=== PATIENT | female | born 1935 | race Caucasian/White ===

== ENCOUNTER 2023-11-18 16:03 | Inpatient (IN) ==
--- NOTE | 2023-11-18 16:52 | Emergency Department Note ---
Impression & Plan RSV (respiratory syncytial virus infection), Bronchiectasis, Hypoxia ED Provider Note Provider: Vicente Bansal MD DATE OF SERVICE: 11/18/2023 CHIEF COMPLAINT: Cough, referred for [facility] HISTORY OF PRESENT ILLNESS: Patient is a 88-year-old female referred for [facility] with a history of bronchiectasis presenting here today with reports for some cough for the past week. Some intermittent fever fatigue and decreased appetite but denies chest pain or shortness of breath. Maybe a bit winded with exertion. No swelling. No travel. No sick contacts to her knowledge. 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 Some green phlegm production. Did not have an x-ray at urgent care and sent here as they were unable. Had a negative COVID test on Saturday by her report. Some decreased appetite. Not really nauseous. Unable to tell me if she has had a change in taste or smell. But expressed reports with ambulation she dropped about 90% SpO2. PAST MEDICAL HISTORY: As noted above MEDICATIONS: Reviewed medication list. SOCIAL HISTORY: Non-smoker PHYSICAL EXAM: GENERAL: alert and oriented in no acute distress on stretcher Head: normocephalic and atraumatic EYES: No injection, discharge or icterus. NECK: Trachea midline. Supple. ENT: Mucous membranes pink and moist. LUNGS: Airway patent. No retractions. Breath sounds clear without significant crackles noted. HEART: Regular rate and rhythm. No chest wall tenderness ABDOMEN: Soft and non-tender, without guarding or rebound. SKIN: Acyanotic, warm, dry, without rashes EXTREMITIES: Without swelling, tenderness or deformity NEUROLOGICAL: No focal deficits. No aphasia. No facial droop or slurred speech. EK beats minute normal sinus rhythm with left axis. No PVC or PAC. No acute ST segment elevation or depression with a QTc of 434. CONTINUOUS CARDIAC MONITORING: was ordered and showed a heart rate of 90s bpm in normal sinus rhythm Patient's laboratory studies and imaging reviewed. Differential includes Reactive airway disease, pneumonia, pneumothorax, COPD, CHF, infections, cardiac ischemia, pulmonary embolism, musculoskeletal, gastrointestinal, as well as other pathologies. IMPRESSION/MEDICAL DECISION MAKING: Patient with underlying bronchiectasis now somewhat productive cough with green sputum. Borderline O2 sats here. No fevers reported. No sick contacts. Respiratory viral panel be completed. Well-appearing but somewhat fatigued. EKG and troponin complete but doubt this represents ACS. I sensitive troponin only 15.2 and not indicative of this. Function slightly worse than normal at 1.2 today from baseline around 0.7. No second electrolyte abnormalities. No leukocytosis or anemia on blood work. Initially sent for a 2 view chest x-ray to evaluate for signs of pneumonia. No evidence of fluid overload on clinical exam or swelling of the legs concerning for DVT. Lower suspicion for PE. Does resting at baseline desaturating to the high 80s. Not significantly wheezing. Non-smoker. 2 view chest x-ray without evidence of focal consolidation but some lung scarring noted. Doubt this represents PE given the infectious symptoms. Reviewed prior pulmonary note from December 2022 as well as prior sputum microbiology showing Pseudomonas. 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 Cannot totally exclude underlying bacterial component however. Again with her mild hypoxemia, advanced age, underlying lung disease, will recommend that we monitor her over here overnight. Hospitalist team contacted. Did discuss with the pulmonary team Dr. Franks recommended pseudomonal coverage for antibiotics. Updated patient and family who are in agreement. Sputum culture ordered. DIAGNOSIS: RSV, hypoxia, bronchiectasis DISPOSITION: Hospitalist will evaluate Patient was agreeable with this plan. 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 Hypothyroid HTN (hypertension) Surgical History (Updated 05/23/22 @ 07:59 by Swathi Odell RN) History of tooth extraction History of tonsillectomy History of colonoscopy History of esophagogastroduodenoscopy (EGD) History of cholecystectomy H/O: hysterectomy History of lumbar surgery L2-4 decompression Family History (Updated 05/23/22 @ 08:00 by Swathi Odell RN) Grandmother (Maternal) Diabetes Social History Smoking Status: Never smoker Second Hand Exposure: No; Do You Dip or Chew Tobacco: No; Hx Alcohol Use: Yes Alcohol type: wine Hx Substance Use: No Preferred Language: Guinean Communication Ability: Effective Hearing Ability: Use of Hearing Aid 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 Beliefs That Will Affect Care: None marital status: Current Living Situation: Alone Current Living Situation Comment: " [place]" Feels Safe at Home: Yes Assistive Devices: Glasses, Hearing Aid - Bilateral and Walker Allergies Allergies Allergy/AdvReac Type Severity Reaction Status Date / Time No Known Allergies Allergy Verified 11/18/23 16:37 Home Meds Home Medications Medication Instructions Recorded Confirmed amlodipine 5 mg tablet 5 mg PO PM 10/13/21 11/18/23 diphenhydramine 25 1 tab PO HS PRN Sleep 10/13/21 11/18/23 mg-acetaminophen 500 mg tablet (Tylenol PM Extra Strength) duloxetine 60 mg capsule,delayed 60 mg PO QAM 10/13/21 11/18/23 release (Cymbalta) gabapentin 600 mg tablet 1,200 mg PO BID 10/13/21 11/18/23 polyethylene glycol 3350 17 17 g PO QAM 10/13/21 11/18/23 gram/dose oral powder (Miralax) cyclosporine 0.05 % eye drops in a 1 drp OPB BID 11/18/23 11/18/23 dropperette estradiol 0.5 mg tablet 0.5 mg PO DAILY 11/18/23 11/18/23 levothyroxine 25 mcg tablet 25 mcg PO DAILYBB 11/18/23 11/18/23 pantoprazole 40 mg tablet,delayed 40 mg PO DAILY 11/18/23 11/18/23 release Results & Data (ED) Vital Signs Vital Signs - 24 hr 11/18/23 16:14 11/18/23 17:21 11/18/23 17:27 Temperature 36.8 C Temperature Source Temporal Artery Scan Pulse Rate 96 H 91 H Pulse Rate [Apical] Respiratory Rate 19 18 Respiratory Effort / Characteristics Respiratory Depth Blood Pressure 88/58 L Blood Pressure [Left Arm] Blood Pressure Mean 68 Blood Pressure Mean [Left Arm] Blood Pressure Position [Left Arm] Pulse Oximetry 99 91 88 L Oxygen Delivery Method Room Air Room Air Room Air Oxygen Flow Rate Sepsis Recent Fever Within 48 Hours Yes Sepsis New/Unexplained Change in Mental Status N/A Sepsis Action Taken by Nursing No Action Required 11/18/23 17:28 11/18/23 18:19 11/18/23 19:23 Temperature Temperature Source Pulse Rate Pulse Rate [Apical] 89 90 Respiratory Rate 19 21 Respiratory Effort / Characteristics Non-Labored Spontaneous Respiratory Depth Normal Blood Pressure Blood Pressure [Left Arm] 120/79 131/88 Blood Pressure Mean Blood Pressure Mean [Left Arm] 92 102 Blood Pressure Position [Left Arm] Semi-fowlers Pulse Oximetry 93 98 94 Oxygen Delivery Method Nasal Cannula Nasal Cannula Nasal Cannula Oxygen Flow Rate 2 2 2 Sepsis Recent Fever Within 48 Hours Sepsis New/Unexplained Change in Mental Status Sepsis Action Taken by Nursing 11/18/23 21:00 Temperature Temperature Source Pulse Rate Pulse Rate [Apical] 91 H Respiratory Rate 18 Respiratory Effort / Characteristics Respiratory Depth Normal Blood Pressure Blood Pressure [Left Arm] 122/74 Blood Pressure Mean Blood Pressure Mean [Left Arm] 90 Blood Pressure Position [Left Arm] Pulse Oximetry 94 Oxygen Delivery Method Nasal Cannula Oxygen Flow Rate 2 Sepsis Recent Fever Within 48 Hours Sepsis New/Unexplained Change in Mental Status Sepsis Action Taken by Nursing Laboratory Data 11/18/23 16:39 11/18/23 16:39 Lab Results 11/18/23 11/18/23 11/18/23 Range/Units 16:39 17:16 20:46 WBC 7.38 (4.8-10.8) K/ul RBC 4.69 (4.20-5.40) M/uL Hgb 14.6 (12.0-16.0) g/dl Hct 44.3 (37.0-47.0) % MCV 94.5 (80.0-100.0) fL MCH 31.1 (25.0-34.0) pg MCHC 33.0 (32.0-36.0) g/dL RDW Std Deviation 47.5 H (36.4-46.3) fL RDW Coeff of Tanya 13.7 (11.5-14.5) % Plt Count 159 (130-400) K/uL MPV 12.2 (9.4-12.4) fL Immature Gran % (Auto) 0.5 % Neut % (Auto) 62.0 % Lymph % (Auto) 21.1 % [place] % (Auto) 16.0 % Eos % (Auto) 0.3 % Baso % (Auto) 0.1 % Neut # (Auto) 4.57 (1.40-6.50) K/uL Lymph # (Auto) 1.56 (1.20-3.40) K/uL [place] # (Auto) 1.18 H (0.11-0.59) K/uL Eos # (Auto) 0.02 (0.00-0.50) K/uL Baso # (Auto) 0.01 (0.00-0.20) K/uL Immature Gran # (Auto) 0.04 (0.01-0.20) K/uL PT 11.4 (9.0-12.0) Seconds INR 1.0 (0.9-1.1) Sodium 137 (136-145) mmol/L Potassium 3.6 (3.5-5.1) mmol/L Chloride 99 (98-107) mmol/L Carbon Dioxide 28 (21-32) mmol/L Anion Gap 10 (3-11) BUN 17 (6-23) mg/dl Creatinine 1.24 H (0.6-1.2) mg/dl Est Cr Clr Drug Dosing 24.6 ml/min Est GFR ( Amer) 45.5 ml/min Est GFR (Non-Af Amer) 39.3 ml/min BUN/Creatinine Ratio 13.7 (10-20) Glucose 124 H (70-99(Fasting)) mg/dl Calcium 9.3 (8.6-10.3) mg/dl Magnesium 2.1 (1.7-2.4) mg/dl Total Bilirubin 0.7 (0.2-1.0) mg/dl AST 18 (13-39) U/L ALT 10 (7-52) U/L Alkaline Phosphatase 62 (34-104) U/L Troponin I High Sens 15.2 H (0-14) pg/ml Total Protein 7.4 (6.0-8.3) gm/dl Albumin 3.9 (3.4-5.0) gm/dl Globulin 3.5 (2.5-4.0) gm/dl Albumin/Globulin Ratio 1.1 (0.9-2) Procalcitonin 0.18 (0-0.5) ng/ml Urine Color Yellow Urine Appearance Clear (Clear) Urine pH 5.5 (4.5-7.5) Ur Specific [place] 1.021 (1.000-1.030) Urine Protein 1+ H (Negative) Urine Glucose (UA) Negative (Negative) Urine Ketones Trace H (Negative) Urine Blood Negative (Negative) Urine Nitrite Negative (Negative) Urine Bilirubin Negative (Negative) Urine Urobilinogen Negative (Negative) Ur Leukocyte Esterase Negative (Negative) Urine WBC (Auto) 1-5 (0-5) /hpf Urine RBC (Auto) 0-4 (0-4) /hpf U Hyaline Cast (Auto) 1-5 (0-5) /lpf U Epithel Cells (Auto) >30 H (0-5) /lpf Urine Bacteria (Auto) Negative (Negative) Adenovirus (PCR) Not Detected (NotDetected) B. pertussis DNA (PCR) Not Detected (NotDetected) B.parapertussis DNA PCR Not Detected (NotDetected) C. pneumoniae DNA (PCR) Not Detected (NotDetected) Coronavirus OC43 (PCR) Not Detected (NotDetected) Coronavirus HKU1 (PCR) Not Detected (NotDetected) Coronavirus 229E (PCR) Not Detected (NotDetected) SARS-CoV-2 (PCR) Not Detected (NotDetected) Coronavirus NL63 (PCR) Not Detected (NotDetected) Human Metapneumovir PCR Not Detected (NotDetected) Influenza Type A (PCR) Not Detected (NotDetected) Influenza Type B (PCR) Not Detected (NotDetected) M. pneumoniae (PCR) Not Detected (NotDetected) Parainfluenza 1 (PCR) Not Detected (NotDetected) Parainfluenza 2 (PCR) Not Detected (NotDetected) Parainfluenza 3 (PCR) Not Detected (NotDetected) Parainfluenza 4 (PCR) Not Detected (NotDetected) RSV (PCR) DETECTED A* (NotDetected) Entero/Rhino (PCR) Not Detected (NotDetected) Administered Medications Guaifenesin (Guaifenesin 600 Mg Tabcr) 600 mg PO Q12 [facility] Stop: 12/18/23 20:59 Last Admin: 11/18/23 20:36 Dose: 600 mg Documented By: TI Lactated Ringer's (Lr) 1,000 mls @ 100 mls/hr IV .Q10H VASILE Stop: 11/20/23 02:29 Last Admin: 11/18/23 20:43 Dose: 100 mls/hr Documented By: TI Discontinued Medications Sodium Chloride (Nss) 500 mls @ 999 mls/hr IV .Q31M ONE Stop: 11/18/23 19:28 Last Infusion: 11/18/23 19:49 Dose: Infused Documented By: Admin: 11/18/23 19:21 Dose: 999 mls/hr Documented By: TI Cefepime HCl (Maxipime) 2,000 mg in 20 mls @ 5 mls/min IV NOW STA; Protocol Stop: 11/18/23 19:01 Last Admin: 11/18/23 19:18 Dose: 5 mls/min Documented By: TI Imaging Data Radiologist's Impression: Chest X-Ray 11/18/23 17:07 XR chest 2V PA/lateral HISTORY: Dyspnea/cough COMPARISON: Chest 03/12/2022. Chest CT 11/19/2022. FINDINGS: No pneumothorax. No pleural effusions. Bronchiectasis with scattered tree-in-bud nodular opacities and mild interstitial thickening persists. Chronic consolidation within the right middle lobe remains unchanged. There are calcified mediastinal and hilar lymph nodes. No new focal lung consolidations identified. No evidence for overt edema. The heart is normal in size. IMPRESSION: Chronic changes as described above. This is similar to the prior studies. ACT 112: Negative or not required by law. Electronically signed by: Gui House M.D. 11/18/2023 7:18 PM Discharge Plan Visit Data Chief Complaint: Cough Stated Complaint: COUGH/COUGHING UP GREEN FLEM, NO APPETITE, FEVER ED Provider: Vicente Bansal Discharge Problem: RSV (respiratory syncytial virus infection), Bronchiectasis, Hypoxia Patient Disposition: Being Evaluated by Hospitalist Forms Stand Alone Forms: My [facility] Prescriptions Prescriptions: No Action diphenhydramine-acetaminophen [Tylenol PM Extra Strength] 25-500 mg tablet 1 tab PO HS PRN (Reason: Sleep) amlodipine 5 mg tablet 5 mg PO PM polyethylene glycol 3350 [Miralax] 17 gram/dose powder 17 g PO QAM duloxetine [Cymbalta] 60 mg capsule,delayed release(DR/EC) 60 mg PO QAM gabapentin 600 mg tablet 1,200 mg PO BID pantoprazole 40 mg tablet,delayed release (DR/EC) 40 mg PO DAILY estradiol 0.5 mg tablet 0.5 mg PO DAILY cyclosporine 0.05 % dropperette 1 drp OPB BID levothyroxine 25 mcg tablet 25 mcg PO DAILYBB [facility] - Discharge Problem: Bronchiectasis Qualifiers: Bronchiectasis type: with acute exacerbation Qualified Code(s): J47.1 - Bronchiectasis with (acute) exacerbation
[2023-11-18 17:37] LABS: Basophils # (auto) 0.01 K/uL (0.00-0.20); Basophils % (auto) 0.1 %; Eosinophils # (auto) 0.02 K/uL (0.00-0.50); Eosinophils % (auto) 0.3 %; Hematocrit (blood only) 44.3 % (37.0-47.0); Hemoglobin 14.6 g/dl (12.0-16.0); Immature Granulocytes # (auto) 0.04 K/uL (0.01-0.20); Immature Granulocytes % (auto) 0.5 %; Lymphocytes # (auto) 1.56 K/uL (1.20-3.40); Lymphocytes % (auto) 21.1 %; Mean Corpuscular Hemoglobin 31.1 pg (25.0-34.0); Mean Corpuscular Volume 94.5 fL (80.0-100.0); Mean Platelet Volume 12.2 fL (9.4-12.4); Monocytes # (auto) 1.18 K/uL (0.11-0.59); Neutrophils # (auto) 4.57 K/uL (1.40-6.50); Platelet Count 159 K/uL (130-400); RDW Coefficient of Variation 13.7 % (11.5-14.5); RDW Standard Deviation 47.5 fL (36.4-46.3); Red Blood Count 4.69 M/uL (4.20-5.40); White Blood Count 7.38 K/ul (4.8-10.8)
[2023-11-18 17:51] LABS: Albumin Globulin Ratio 1.1 (0.9-2); Albumin Level 3.9 gm/dl (3.4-5.0); BUN Creatinine Ratio 13.7 (10-20); Bilirubin,Total 0.7 mg/dl (0.2-1.0); Calcium 9.3 mg/dl (8.6-10.3); Creatinine Clr Calc Pharmacy 24.6 ml/min; Est GFR (African American) 45.5 ml/min; Est GFR (Non-African American) 39.3 ml/min; Globulin 3.5 gm/dl (2.5-4.0); Potassium 3.6 mmol/L (3.5-5.1); Total Protein 7.4 gm/dl (6.0-8.3)
[2023-11-18 17:57] LABS: Troponin I High Sensitivity 15.2 pg/ml (0-14)
[2023-11-18 18:19] LABS: Adenovirus PCR Not Detected (NotDetected); Bordetella parapertussis PCR Not Detected (NotDetected); Bordetella pertussis PCR Not Detected (NotDetected); Chlamydia pneumoniae PCR Not Detected (NotDetected); Coronavirus 229E PCR Not Detected (NotDetected); Coronavirus CoV-2 (COVID19)PCR Not Detected (NotDetected); Coronavirus HKU1 PCR Not Detected (NotDetected); Coronavirus NL63 PCR Not Detected (NotDetected); Coronavirus OC43PCR Not Detected (NotDetected); Human Metapneumovirus PCR Not Detected (NotDetected); Influenza A PCR Not Detected (NotDetected); Influenza B PCR Not Detected (NotDetected); Mycoplasma pneumoniae PCR Not Detected (NotDetected); Parainfluenza Virus 1 PCR Not Detected (NotDetected); Parainfluenza Virus 2 PCR Not Detected (NotDetected); Parainfluenza Virus 3 PCR Not Detected (NotDetected); Parainfluenza Virus 4 PCR Not Detected (NotDetected); Rhinovirus/Enterovirus PCR Not Detected (NotDetected)
[2023-11-18 18:32] LABS: Prothrombin Time 11.4 Seconds (9.0-12.0)
[2023-11-18 18:52] LABS: Respiratory Syncytial VirusPCR DETECTED (NotDetected)
[2023-11-18] MEDS ORDERED: SODIUM CHLORIDE 0.9% 500 ML IV ONE (18:58)
[2023-11-18] MEDS ORDERED: CEFEPIME 2,000 MG/20 ML VIAL IV STA (18:58)
--- NOTE | 2023-11-18 19:19 | XRay Report ---
XR chest 2V PA/lateral HISTORY: Dyspnea/cough COMPARISON: Chest 03/12/2022. Chest CT 11/19/2022. FINDINGS: No pneumothorax. No pleural effusions. Bronchiectasis with scattered tree-in-bud nodular op acities and mild interstitial thickening persists. Chronic consolidation within the right middle lobe remains unchanged. There are calcified mediastinal and hilar lymph nodes. No new focal lung consolid ations identified. No evidence for overt edema. The heart is normal in size. IMPRESSION: Chronic changes as described above. This is similar to the prior studies. ACT 112: Negative or not required by law. Electronically signed by: Gui House M.D. 11/18/2023 7:18 PM
--- NOTE | 2023-11-18 19:37 | History & Physical Report ---
Date of Service November 18, 2023 Assessment & Plan (1) RSV (respiratory syncytial virus infection): Plan: Worsening cough, intermittent fever, fatigue, and decreased appetite x 1 week RSV + on presentation No leukocytosis; afebrile CXR showed chronic consolidation within the right middle lobe that remains unchanged; no new focal lung consolidations Droplet precautions in place Sputum culture ordered, pending Hx of valley fever (coccidioidal infection); patient follows with Dr. Davis (pulmonology); PFTs on 06/05/2023 revealed no obstructive lung dysfunction Cefepime 2000 mg IV given in the ED for Pseudomonas coverage Procalcitonin ordered, pending Will defer further antibiotics for now, pending procalcitonin and sputum culture; no elevated white count or new consolidation within the right middle lobe Guaifenesin 600 mg p.o. q12h for cough Promote good pulmonary hygiene with incentive spirometry and flutter valve QID Supplemental oxygen as needed to maintain SpO2 >94% DuoNeb 3mL QIDR as needed for wheezing Acetaminophen as needed for pain/fever A.m. 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 She presented for cough, intermittent fever, fatigue, and decreased appetite x 1 week. RSV positive on arrival. Patient reports that her productive cough (green sputum) started on Sunday 11/12. She denies SOB. No at home supplemental oxygen use. Patient had 1 episode of fever on Saturday night; she took Sudafed, as well as her regular Tylenol PM, but is not sure if it helped. Patient took all of her regular medications this morning. No recent change in medications. She manages her own medications at home. No sick contacts. She denies smoking, tobacco use, vaping, and recreational drug use; endorses mild alcohol use; 2 glasses of wine per week. She follows with Dr. Davis (pulmonology), and has a history of valley fever (coccidioidal infection) many years ago; not on any inhalers. Patient's vitals are stable at this time of admission; SpO2 94% on 2L NC. ED course: Cefepime 2000 mg IV NSS 500 mL IV ROS: Patient endorses intermittent fever (on Saturday; resolved), and productive cough (green sputum) Patient denies lightheadedness, dizziness, hemoptysis, chest pain, chest palpitations, pleuritic CP, abdominal pain, N/V/D, urinary s/s, burning with urination, blood in the stool/urine, or numbness/tingling/pain in the legs. Allergies Allergy/AdvReac Type Severity Reaction Status Date / Time No Known Allergies Allergy Verified 11/18/23 16:37 Home Medications Medication Instructions Recorded Confirmed Type amlodipine 5 mg tablet 5 mg PO PM 10/13/21 11/18/23 History diphenhydramine 25 1 tab PO HS PRN Sleep 10/13/21 11/18/23 History mg-acetaminophen 500 mg tablet (Tylenol PM Extra Strength) duloxetine 60 mg capsule,delayed 60 mg PO QAM 10/13/21 11/18/23 History release (Cymbalta) gabapentin 600 mg tablet 1,200 mg PO BID 10/13/21 11/18/23 History polyethylene glycol 3350 17 17 g PO QAM 10/13/21 11/18/23 History gram/dose oral powder (Miralax) cyclosporine 0.05 % eye drops in a 1 drp OPB BID 11/18/23 11/18/23 History dropperette estradiol 0.5 mg tablet 0.5 mg PO DAILY 11/18/23 11/18/23 History levothyroxine 25 mcg tablet 25 mcg PO DAILYBB 11/18/23 11/18/23 History pantoprazole 40 mg tablet,delayed 40 mg PO DAILY 11/18/23 11/18/23 History release Past Med/Surg History Medical History (Updated 11/18/23 @ 21:34 by Vicente Bansal M.D.) COVID March 12, 2022 > not hospitalized, tested at [facility], cough and fatigue, continues with cough GERD (gastroesophageal reflux disease) 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 Hypothyroid HTN (hypertension) Surgical History (Updated 05/23/22 @ 07:59 by Swathi Odell RN) History of tooth extraction History of tonsillectomy History of colonoscopy History of esophagogastroduodenoscopy (EGD) History of cholecystectomy H/O: hysterectomy History of lumbar surgery L2-4 decompression Family History (Updated 05/23/22 @ 08:00 by Swathi Odell RN) Grandmother (Maternal) Diabetes Social History Smoking Status: Never smoker Second Hand Exposure: No; Do You Dip or Chew Tobacco: No; Hx Alcohol Use: Yes Alcohol type: wine Hx Substance Use: No Preferred Language: Macedonian Communication Ability: Effective Hearing Ability: Use of Hearing Aid 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: No Beliefs That Will Affect Care: None marital status: Current Living Situation: Alone Current Living Situation Comment: " [place]" Feels Safe at Home: Yes Assistive Devices: Glasses, Hearing Aid - Bilateral and Walker Review of Systems Review of Systems: See HPI above Physical Exam Physical Exam: General: no acute distress; pleasant affect; non-toxic appearing; well- nourished; cooperative; SpO2 94% on 2L NC HEENT: normocephalic, atraumatic; no scleral icterus; PERRLA w/ EOMs intact; moist mucus membrane; vision and hearing grossly intact Neck: supple; no lymphadenopathy; trachea midline Skin: warm, dry without signs of tenting; no cyanosis; no rashes, bruising, lesions, or erythema noted CV: chest wall NTP; RRR; S1/S2 normal; no new murmurs/rubs/gallops; pulses intact and symmetric at radial, DP, and PT Lungs: Mild respiratory distress secondary to cough; patient has difficulty taking deep breath without coughing; symmetrical chest wall expansion; mild expiratory wheeze across all lung forde bilaterally ABD: Soft, NTP; BS present; no rebound/guarding; no ascites; no distention; negative CVA tenderness MSK: no tics or fasciculations; no edema noted in the LEs b/l, nonerythematous Neuro: A&Ox3; normal mood and affect; fluent speech; no focal deficits; sensation grossly intact in LEs B/L Results & Data Results & Data Vital Signs (Past 12 Hours) Vital Signs Temp Pulse Pulse Resp BP BP Pulse Ox 11/18/23 19:23 90 21 131/88 94 11/18/23 18:19 89 19 120/79 98 11/18/23 17:28 93 11/18/23 17:27 88 L 11/18/23 17:21 91 H 18 91 11/18/23 16:14 36.8 C 96 H 19 88/58 L 99 O2 Del Method O2 Flow Rate 11/18/23 19:23 Nasal Cannula 2 11/18/23 18:19 Nasal Cannula 2 11/18/23 17:28 Nasal Cannula 2 11/18/23 17:27 Room Air 11/18/23 17:21 Room Air 11/18/23 16:14 Room Air Laboratory Results Abnormal lab results 11/18/23 11/18/23 Range/Units 16:39 17:16 RDW Std Deviation 47.5 H (36.4-46.3) fL [place] # (Auto) 1.18 H (0.11-0.59) K/uL Creatinine 1.24 H (0.6-1.2) mg/dl Glucose 124 H (70-99(Fasting)) mg/dl Troponin I High Sens 15.2 H (0-14) pg/ml RSV (PCR) DETECTED A* (NotDetected) Diagnostic Findings Chest X-Ray 11/18/23 17:07 XR chest 2V PA/lateral HISTORY: Dyspnea/cough COMPARISON: Chest 03/12/2022. Chest CT 11/19/2022. FINDINGS: No pneumothorax. No pleural effusions. Bronchiectasis with scattered tree-in-bud nodular opacities and mild interstitial thickening persists. Chronic consolidation within the right middle lobe remains unchanged. There are calcified mediastinal and hilar lymph nodes. No new focal lung consolidations identified. No evidence for overt edema. The heart is normal in size. IMPRESSION: Chronic changes as described above. This is similar to the prior studies. ACT 112: Negative or not required by law. Electronically signed by: Gui House M.D. 11/18/2023 7:18 PM Code Status & VTE Plan Code Status DNR/DNI VTE Prophylaxis Plan VTE Prophylaxis will be ordered: Yes Supervising Physician Co-Signing Physician Notes Patient seen and examined, chart reviewed, case discussed with MIS Butt and I agree with the assessment and plan as above. In brief, patient is a pleasant 88yo female with history of bronchiectasis - she follows with Pulmonary - Autoimmune workup has been negative as has AFB testing. MAC still on differential. Patient presents to the ER today with cough, fever, fatigue and poor appetite ongoing x 1 week. She was found to be POSITIVE for RSV. She has been afebrile since early in her illness. Her symptoms have been persis tent but no acute worsening. Mildly hypoxic in the ER at 88% on room air requiring placement of supplemental O2. Does not use O2 at home. On exam she appears tired but in NAD, oriented and answering questions appropriately Skin - warm, dry, intact HEENT - MMM, Neck supple Heart - +S1/S2, regular, no m/r/g Lungs - coarse breath sounds in right mid lung and base, no wheezing Abd - +BS, soft, NT/ND Ext - warm, well perfused, no clubbing/cyanosis or edema Labs and images reviewed RSV POSITIVE CXR with chronic changes in RML, no obvious infiltrate Procalcitonin is WNL at 0.18 WBC is WNL at 7.38 (although baseline seems to be 4) Mild elevation of Cr at 1.24 (baseline of 0.7) Sputum culture preliminary reading with many polys, few epithelial cells, moderate GNB and few GPC Assessment/Plan Treatment as above - supportive care for RSV Uncertain if patient has underlying bacterial component - no new infiltrate, normal WBC count and procalcitonin. Her sputum culture is POSITIVE (newly ret urned result) for GNB - has grown Pseudomonas in the past. -Will continue empiric Cefepime for now -Check MRSA Nares -maintain droplet precautions -Mucinex -Flutter valve, IS, hypertonic nebs BID as well as Duonebs PRN -Supplemental O2 as needed -IVF for ALFONSO - 3L maintenance ordered. Repeat chemistry in AM -Remainder of plan as above PG Care Time/CCT Total # of Minutes Spent Total Time Spent with Patient: Total time spent is greater than 50% in coordination of care (as documented) at patient's floor/unit and/or counseling patient: C[place] [address] INT INP/OBS CARE MIN Patient Type Established Medical Decision Making Moderate Complexity Diagnoses RSV (respiratory syncytial virus infection) B33.8 ALFONSO (acute kidney injury) N17.9 GERD (gastroesophageal reflux disease) K21.9 Hypothyroid E03.9 HTN (hypertension) I10 Hypertension type: unspecified 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
[2023-11-18] MEDS: guaiFENesin 600 MG TABCR PO SCH (20:36)
[2023-11-18] MEDS: LACTATED RINGER'S 1,000 ML IV SCH (20:43)
[2023-11-18 20:44] LABS: Magnesium 2.1 mg/dl (1.7-2.4)
[2023-11-18 21:17] LABS: Appearance Urine Clear (Clear); Bacteria Urine Automated Negative (Negative); Bilirubin Urine Negative (Negative); Blood Urine Negative (Negative); Color Urine Yellow; Epithelial Cell Urine Auto >30 /lpf (0-5); Glucose Urine UA Negative (Negative); Ketones Urine Trace (Negative); Leukocyte Esterase Urine Negative (Negative); Nitrite Urine Negative (Negative); Protein Urine 1+ (Negative); RBC Urine Automated 0-4 /hpf (0-4); Specific Gravity Urine 1.021 (1.000-1.030); Urobilinogen Urine Negative (Negative); pH Urine 5.5 (4.5-7.5)
[2023-11-18] MEDS ORDERED: ONDANSETRON INJ 2 MG/ML 2 ML VIAL IV PRN (23:13)
[2023-11-18] MEDS ORDERED: ACETAMINOPHEN 325 MG TAB PO PRN (23:13)
[2023-11-18] MEDS ORDERED: ARTIFICIAL TEARS OP PRN (23:41)
[2023-11-19] MEDS ORDERED: MELATONIN 3 MG TAB PO PRN (00:38)
[2023-11-19] MEDS: amLODIPine BESYLATE 5 MG TAB PO SCH ×2 (01:01→21:56)
[2023-11-19] MEDS: GABAPENTIN 600 MG TAB PO SCH ×3 (01:01→21:56)
[2023-11-19] MEDS: HEPARIN SOD 5,000 UNIT/0.5 ML VIAL SQ SCH ×3 (01:02→21:56)
--- OUTSIDE RECORDS SUMMARY | 2023-11-19 01:38 | External Medical Summary | Continuity of Care Document ---
Author Name Unknown Organization [facility] [id number] [place] [id number] Care Team Providers Care Health Safety Instructor Name Role Phone Anika Steele Primary Care Physicia n [phone] Encounter [id number] Date(s): 10/30/23 - 10/30/23 [facility] [address] [place] [address] [phone] Encounter Diagnosis Hormone replacement therapy(Discharge Diagnosis) - 10/30/23 Chronic pain syndrome(Discharge Diagnosis) - 10/30/23 Hypertension(Discharge Diagnosis) - 10/30/23 Hypothyroid(Discharge Diagnosis) - 10/30/23 Osteopenia(Discharge Diagnosis) - 10/30/23 Body mass index [BMI] 21.0-21.9, adult(Discharge Diagnosis) - 10/30/23 Discharge Disposition: Home or Self Care Attending Physician: DO Steele Gretchen Elizabeth Allergies, Adverse Reactions, Alerts No Known Allergies Immunizations Given and Recorded Vaccine Date Status Refusal Reason SARS-CoV-2 (COVID-19) mRNA BNT-162b2 vax 1 07/05/21 Recorded SARS-CoV-2 (COVID-19) mRNA BNT-162b2 vax 2 06/04/21 Recorded 1Result Comment: 2022-06-28: Historical information-source unspecified 2Result Comment: 2022-06-28: Historical information-source unspecified Medications acetaminophen 325 mg oral tablet Start: 10/30/21 12:53:00 EST, 2 tab, PO, q4h, PRN: as needed for pain Start Date: 10/30/21 Status: Ordered amLODIPine 5 mg oral tablet Start: 10/21/23 10:46:00 EST, 1 tab, PO, Daily, Disp# 90 tab, Refills: 1, Pharmacy: [id number] Start Date: 10/21/23 Status: Ordered cycloSPORINE 0.05% ophthalmic emulsion Start: 08/19/23 7:50:00 EDT, See Instructions, Disp# 60 each, Refills: 3, INSTILL 1 DROP INTO BOTH EYES TWO TIMES DAILY, Pharmacy: [id number] Start Date: 08/19/23 Status: Ordered Debrox 6.5% otic solution Start: 04/08/23 14:47:00 EDT, 5 drop, both ears, bid, Disp# 30 mL, Refills: 1, Pharmacy: [id number] Start Date: 04/08/23 Status: Ordered estradiol 0.5 mg oral tablet Start: 07/29/23 10:44:00 EDT, See Instructions, Disp# 90 tab, Refills: 1, TAKE 1 TABLET BY MOUTH EVERY DAY, Pharmacy: [id number] Start Date: 07/29/23 Status: Ordered gabapentin 600 mg oral tablet Start: 05/16/23 14:47:00 EDT Start Date: 05/16/23 Status: Ordered levothyroxine 25 mcg (0.025 mg) oral tablet Start: 12/24/22 12:26:00 EST, See Instructions, Disp# 90 tab, Refills: 1, TAKE 1 TABLET BY MOUTH EVERY DAY, Pharmacy: [id number] Start Date: 12/24/22 Status: Ordered pantoprazole 40 mg oral delayed release tablet Start: 10/29/23 7:55:00 EST, 1 tab, PO, Daily, Disp# 90 tab, Refills: 1, Pharmacy: [id number] Start Date: 10/29/23 Status: Ordered Reclast 5 mg/100 mL intravenous solution Start: 06/28/22 14:25:00 EDT, 5 mg =, IV, ONCE, Disp# 1 each Start Date: 06/28/22 Status: Ordered Vitamin D3 1000 intl units (25 mcg) oral capsule Start: 10/30/21 12:53:00 EST, 1 cap, PO, Daily Start Date: 10/30/21 Status: Ordered Mental Status 10/30/23 Barriers to Learning one year None evide nt Mandatory Health Literacy Documentation Yes Health Literacy Communication Barriers N ever Primary Language Lao Problem List Condition Confirmation Course Effective Dates Status H ealth Status Informant Basal cell carcinoma of scalp Confirmed Active Right carpal tunnel syndrome Confirmed Active Bilateral carpal tunnel syndrome Confirmed Active Chronic pain syndrome Confirmed Active Hormone replacement therapy Confirmed Active Cubital tunnel syndrome on left Confirmed Active Lesion of finger Confirmed Active Right foot pain Confirmed Active Trochanteric bursitis of both hips Confirmed Active History of lumbar fusion Confirmed Active History of basal cell carcinoma (BCC) 1 Confirmed Active Hypertension Confirmed Active Hypothyroid Confirmed Active Chronic lumbar radiculopathy Confirmed Active Nondisplaced fracture of fifth right metatarsal bone Confirmed Active Osteopenia Confirmed Active Osteopenia with high risk of fracture Confirmed Active 12 spots on face Diagnosis Diagnosis Type Effective Dates Health Status Clinical Service Informant Hormone replacement therapy Discharge Diagnosis 10/30/23 Chronic pain syndrome Discharge Diagnosis 10/30/23 Hypothyroid Discharge Diagnosis 10/30/23 Hypertension Discharge Diagnosis 10/30/23 Osteopenia Discharge Diagnosis 10/30/23 Body mass index [BMI] 21.0-21.9, adult Discharge Diagnosis 10/30/23 Non-Specified Procedures Procedure Date Related Diagnosis Body Site Status Mohs micrographic surgery 09/05/22 Completed Shave biopsy and cauterizati on of skin 1 08/09/22 Completed 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 2 05/31/22 Completed Chest X-ray 3 03/12/22 Completed Chest X-ray 4 02/26/22 Completed DXA BONE DENSITY STUDY 5 01/04/22 Completed Ultrasound 6 11/02/21 Completed Mohs' surgery 2011 Completed 1crown scalp 2Bilateral L4-L5 radiofrequency face denervation 3Impression: No significant change compared to the prior study. No acute process. 4Impression: No acute chest disease. 5dual femur t score -2.2 left forearm t score -1.9 10 year probability of fracture - major osteoporotic 14.2% - hip 4.7% 6IMPRESSION: Status post cholecystectomy with physiologic dilation of the common bile duct. Otherwise, negative examination. Vital Signs Most recent to oldest [Reference Range]: 1 Height 155.8 cm (10/30/23 1:21 PM) Patient Weight 52 kg (10/30/23 1:21 PM) Body Mass Index 21.42 kg/m2 (10/30/23 1:21 PM) Temperature [36.5-37.9 DegC] 36.9 DegC (10/30/23 1:21 PM) Respiratory Rate 17 br/min (10/30/23 1:21 PM) Blood Pressure 126/68mmHg (10/30/23 1:21 PM) Cuff Pulse Pressure 58 mmHg (10/30/23 1:21 PM) BP Location # 1 Left Arm (10/30/23 1:21 PM) Social History Social History Type Response Smoking Status Never smoked cigaret jaqueline Sex Patient Care team information Care Team Personnel Name: DO Steele Gretchen Elizabeth Position: Physician - Family Med Member Role: Primary Care Provider Address: Address: [address] [place] [address], [place] [address] [place] Care Team Related Persons Name: JOE BLACK Address: home [address] [facility], [place] [id number]
--- OUTSIDE RECORDS SUMMARY | 2023-11-19 01:39 | External Medical Summary | Continuity of Care Document ---
Author Name Unknown Organization [id number] Address [address] [place] [id number] Care Team Providers Care Molding Line Operator Name Role Phone Anika Steele Primary Care Physicia n [phone] Encounter [facility] [id number] Date(s): 06/10/23 - 06/10/23 [facility] [address] [place] [id number] [address] [address] Encounter Diagnosis Trochanteric bursitis of both hips(Discharge Diagnosis) - 06/10/23 Nondisplaced fracture of fifth metatarsal bone, right foot, initial encounter for closed fracture(Discharge Diagnosis) - 06/10/23 Discharge Disposition: Home or Self Care Attending Physician: MIS Matthew Jolene Marie Allergies, Adverse Reactions, Alerts No Known Allergies Assessment and Plan Extracted from: Title:Orthopaedics Office Visit Note Author:Nelsy burrows PA-C, Jolene Marie Date:06/10/23 1.Trochanteric bursitis of both hips Patient has findings that are consistent with trochanteric bursitis. She does have a history of having injections in November by Dr. Fulton and did respond to thisfavorably. She would like to repeat these again. We discussed risk and benefits of the injection. I obtained verbal consent. Procedure 1: The patient was positionedside-lyingand a timeout was performed confirming injection site, injection, and patient. NursingRosie confirmed correct.Using aseptic technique the right hip was prepped using betadine. This was followed bythe use ofEthyl Chloride to numb the area and area was again cleansed using betadine.Next, Iinjected the righttrochanteric bursa with 1cc of40 mg of Depo-Medroland1.5 ccof lidocaine 1% plain.. There was very minimal bleeding whichwas controlled with light pressure. A dressing/bandage was applied. Pt tolerated the procedure well and had no adverse advents. Pt was advised on use of rest today andice x15min to the area with a towel layer prn. Pt wasadvised if any redness, swelling or drainage from the site to contact the office immediately. Pt will follow upas needed. Procedure 2: The patient was positionedside-lyingand a timeout was performed confirming injection site, injection, and patient. NursingRosie confirmed correct.Using aseptic technique the left hip was prepped using betadine. This was followed bythe use ofEthyl Chloride to numb the area and area was again cleansed using betadine.Next, Iinjected thelefttrochanteric bursa with 1cc of40 mg of Depo-Medroland1.5 ccof lidocaine 1% plain.. There was very minimal bleeding whichwas controlled with light pressure. A dressing/bandage was applied. Pt tolerated the procedure well and had no adverse advents. Pt was advised on use of rest today andice x15min to the area with a towel layer prn. Pt wasadvised if any redness, swelling or drainage from the site to contact the office immediately. Pt will follow upas needed. 2.Nondisplaced fracture of fifth metatarsal bone, right foot, initial encounter for closed fracture Patient I discussed imaging and exam findings. Her alignment of the fracture is stable however she does appear to have a fibrous unionon the lateral most aspect of the fracture line. We discussedcontinuing to follow this. She was advised no heavyimpact activities with stomping the footjumpingetc. She was advised she can continue with activities as tolerated. We did discuss possible use of a bone stimulatorif this is notshowing increased callus formation. Patient is going to be traveling to [place] and would like to follow-up in 2 months. We will have an x-ray at that time. I discussed if any changes concernsor problems prior to that to contact the office. Patient verbalized understanding and is in agreement plan. Immunizations Given and Recorded Vaccine Date Status [...] Ordered amLODIPine 5 mg oral tablet Start: 02/05/23 10:50:00 EDT, 1 tab, PO, Daily, Disp# 90 tab, Refills: 2, Pharmacy: [id number] Start Date: 02/05/23 Stop Date: 11/02/23 Status: Ordered cycloSPORINE 0.05% ophthalmic emulsion Start: 03/06/23 12:40:00 EDT, 1 drop, both eyes, bid, Disp# 60 each, Refills: 3, Pharmacy: [id number] Start Date: 03/06/23 Status: Ordered Debrox 6.5% otic solution Start: 04/08/23 14:47:00 EDT, 5 drop, both ears, bid, Disp# 30 mL, Refills: 1, Pharmacy: [id number] Start Date: 04/08/23 Status: Ordered DULoxetine 60 mg oral delayed release capsule Start: 05/16/23 14:47:00 EDT, 1 cap, PO, Daily Start Date: 05/16/23 Status: Ordered estradiol 0.5 mg oral tablet Start: 12/19/22 9:41:00 EST, See Instructions, Disp# 90 tab, Refills: 1, TAKE 1 TABLET BY MOUTH EVERY DAY, Pharmacy: [id number] Start Date: 12/19/22 Status: Ordered famotidine 40 mg oral tablet Start: 05/16/23 15:09:00 EDT, 1 tab, PO, bid, Disp# 30 tab, Pharmacy: [id number] Start Date: 05/16/23 Stop Date: 05/30/23 Status: Ordered gabapentin 600 mg oral tablet Start: 05/16/23 14:47:00 EDT Start Date: 05/16/23 Status: Ordered levothyroxine 25 mcg (0.025 mg) oral tablet Start: 12/24/22 12:26:00 EST, See Instructions, Disp# 90 tab, Refills: 1, TAKE 1 TABLET BY MOUTH EVERY DAY, Pharmacy: [id number] Start Date: 12/24/22 Status: Ordered pantoprazole 40 mg oral delayed release tablet Start: 05/09/23 12:08:00 EDT, See Instructions, Disp# 90 tab, Refills: 1, TAKE 1 TABLET BY MOUTH EVERY DAY, Pharmacy: [id number] Start Date: 05/09/23 Status: Ordered Reclast 5 mg/100 mL intravenous solution Start: 06/28/22 14:25:00 EDT, 5 mg =, IV, ONCE, Disp# 1 each Start Date: 06/28/22 Status: Ordered Vitamin D3 1000 intl units (25 mcg) oral capsule Start: 10/30/21 12:53:00 EST, 1 cap, PO, Daily Start Date: 10/30/21 Status: Ordered Mental Status 06/10/23 Barriers to Learning one year None evide nt Mandatory Health Literacy Documentation Yes Health Literacy Communication Barriers N ever Primary Language [place] Problem List Condition Confirmation Course Effective Dates [...] fifth right metatarsal bone Confirmed Active Osteopenia with high risk of fracture Confirmed Active 12 spots on face Diagnosis Diagnosis Type Effective Dates Health Status Clinical Service Informant Trochanteric bursitis of both hips Discharge Diagnosis 06/10/23 Nondisplaced fracture of fifth metatarsal bone, right foot, initial encounter for closed fracture Discharge Diagnosis 06/10/23 Procedures Procedure Date Related Diagnosis Body Site [...] the common bile duct. Otherwise, negative examination. Social History Social History Type Response Smoking Status Never smoked cigaret jaqueline Sex Outpatient Note * MIS Matthew, Landy Gutierres: PERFORM Event Display: .Outpt Note Authored Date: [id number] Primary Care Provider DO Steele Gretchen Elizabeth Chief Complaint Follow up foot with XR History of Present Illness Patient is an 88-year-old female whois here for follow-up for her right fifth metatarsal fracturethat was discovered on 05/03/2023 with an x-ray. She states sheis doing well she has no pain or swellingon the foot. She states she is able to walk and denies any difficulty with this. She denies any paresthesiain the foot. She states overall she feels great she rates her pain a 0/10 in the foot. She is also inquiring about chronic low back pain. She states her back pain is 3/10and increases with activities. She states she has more pain with walkingand with standing. She states the pain is over the lateral aspect of her hips bilaterally. She states they are about the same. Shedenies any paresthesia weakness or pain going down the legs. She denies any fall or injury She quantifies her pain as 3/10 current, 0/10 Best, 7/10 worse. She denies anyfall, injury, fever, chills, chest pain, shortness of breath or night sweats. Review of Systems Please refer to HPI Physical Exam Patient is seated comfortably in exam chair. She is alert and oriented x3 no acute distress pleasant and conversive. Rightsock and shoe were removed. Negative for any deformity, skin is normal in color and temperature. She has no palpable tenderness along the fifth metatarsal. She is able to move anklein all planes without difficulty. Able to move toeswithout pain. She wasput back on. Patient's back was inspected. She hasmild tendernessat L4 bilaterally. Negative for any pain above or below this. Patient was transition onto exam table lying supine. Leg length is equal.She tolerateship range of motion in all planeswith the exception of external rotation she hassome pain over the lateral aspect of bilateral hips. Patient has negative straight leg raise bilaterally. Patient was positioned side-lyingand has exquisite tenderness over thetrochanteric bursa's bilaterally. Bilateral lower extremity sensation was assessed over L4-L5 and S1 this is intact. Gait is normal without assist device. Diagnostic Results X-ray was reviewed and compared to previous imaging done on 05/17/2023. Patient does shows late callus formation as well as some fibrous unionover the fifth metatarsalfracture. Alignment is stable. Assessment/Plan 1.Trochanteric bursitis of both hips Patient has findings that are consistent with trochanteric bursitis. She does have a history ofhaving injections in November by Dr. Fulton and did respond to thisfavorably. She would like to repeat these again. We discussed risk and benefits of the injection. I obtained verbal consent. Procedure 1: The patient was positionedside-lyingand a timeout was performed confirming injection site, injection, and patient. Rosie Hoyos confirmed correct.Using aseptic technique the right hip was prepped using betadine. This was followed bythe use ofEthyl Chloride to numb the area and area was again cleansed using betadine.Next, Iinjected the righttrochanteric bursa with 1cc of40 mg of Depo-Medroland1.5 ccof lidocaine 1% plain.. There was very minimal bleeding whichwas controlled with light pressure. A dressing/bandage was applied. Pt tolerated the procedure well and had no adverse advents. Pt was advised on use of rest today andice x15min to the area with a towel layer prn. Pt wasadvised if any redness, swelling or drainage from the site to contact the office immediately. Pt will follow upas needed. Procedure 2: The patient was positionedside-lyingand a timeout was performed confirming injection site, injection, and patient. Rosie Hoyos confirmed correct.Using aseptic technique the left hip was prepped using betadine. This was followed bythe use ofEthyl Chloride to numb thearea and area was again cleansed using betadine.Next, Iinjected thelefttrochanteric bursawith 1cc of40 mg of Depo-Medroland1.5 ccof lidocaine 1% plain.. There was very minimal bleeding whichwas controlled with light pressure. A dressing/bandage was applied. Pt tolerated the procedure well and had no adverse advents. Pt was advised on use of rest today andice x15min to the area with a towel layer prn. Pt wasadvised if any redness, swelling or drainage from the site to contact the office immediately. Pt will follow upas needed. 2.Nondisplaced fracture of fifth metatarsal bone, right foot, initial encounter for closed fracture Patient I discussed imaging and exam findings. Her alignment of the fracture is stable however she does appear to have a fibrous unionon the lateral most aspect of the fracture line. We discussedcontinuing to follow this. She was advised no heavyimpact activities with stomping the footjumpingetc. She was advised she can continue with activities as tolerated. We did discuss possible use of a bone stimulatorif this is notshowing increased callus formation. Patient is going to be traveling to [place] and would like to follow-up in 2 months. We will have an x-ray at that time. I discussed if any changes concernsor problems prior to that to contact the office. Patient verbalized understanding and is in agreement plan. Problem List/Past Medical History Ongoing Basal cell carcinoma of scalp Bilateral carpal tunnel syndrome Chronic lumbar radiculopathy Chronic pain syndrome Cubital tunnel syndrome on left History of basal cell carcinoma (BCC) History of lumbar fusion Hormone replacement therapy Hypertension Hypothyroid Lesion of finger Nondisplaced fracture of fifth right metatarsal bone Osteopenia with high risk of fracture Right carpal tunnel syndrome Right foot pain Trochanteric bursitis of both hips Procedure/Surgical History Mohs micrographic surgery (09/05/2022)Shave biopsy and cauterization of skin (08/09/2022)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 (05/31/2022)Chest X-ray (03/12/2022)Chest X-ray (02/26/2022)DXA BONE DENSITY STUDY (01/04/2022)Ultrasound (11/02/2021)Mohs' surgery (2012) Medications acetaminophen(acetaminophen 325 mg oral tablet), 650 mg= 2 tab, PO, q4h, PRN amLODIPine(amLODIPine 5 mg oral tablet), 5 mg= 1 tab, PO, Daily, 2 refills carbamide peroxide otic(Debrox 6.5% otic solution), 5 drop, both ears, bid, 1 refills cholecalciferol(Vitamin D3 1000 intl units (25 mcg) oral capsule), 25 mcg= 1 cap, PO, Daily cycloSPORINE ophthalmic(cycloSPORINE 0.05% ophthalmic emulsion), 1 drop, both eyes, bid, 3 refills DULoxetine(DULoxetine 60 mg oral delayed release capsule), 60 mg= 1 cap, PO, Daily estradiol(estradiol 0.5 mg oral tablet), See Instructions, 1 refills famotidine(famotidine 40 mg oral tablet), 40 mg= 1 tab, PO, bid gabapentin(gabapentin 600 mg oral tablet) levothyroxine(levothyroxine 25 mcg (0.025 mg) oral tablet), See Instructions, 1 refills methylPREDNISolone - AMB Provider Charge(DEPO-Medrol 40 mg/mL - PROVIDER injection), 40 mg= 1 mL, intra-articular, ONCE methylPREDNISolone - AMB Provider Charge(DEPO-Medrol 40 mg/mL - PROVIDER injection), 40 mg= 1 mL, intra-articular, ONCE pantoprazole(pantoprazole 40 mg oral delayed release tablet), See Instructions, 1 refills zoledronic acid(Reclast 5 mg/100 mL intravenous solution), 5 mg, IV, ONCE Allergies NKA Social History Smoking Status Never smoked cigarettes Immunizations Vaccine Date Status SARS-CoV-2 (COVID-19) mRNA BNT-162b2 vax 07/05/2021 Recorded Comments : 2022-06-28: Historical information-source unspecified SARS-CoV-2 (COVID-19) mRNA BNT-162b2 vax 06/04/2021 Recorded Comments : 2022-06-28: Historical information-source unspecified Recommendations Health Maintenance Pending(in the next year) OverDue Adult Influenza Vaccine due05/04/23and every 1year Due Adult COVID-19 Vaccination due06/10/23Unknown Frequency Adult Tdap/Td Vaccine due06/10/23Unknown Frequency Lipid Screening due06/10/23Unknown Frequency Pneumococcal Vaccine Older Adults due06/10/23One-time only Shingles Vaccine due06/10/23One-time only Due In Future Medicare Annual Wellness Visit not due until06/28/23and every 1year Body Mass Index not due until04/07/24and every 1year Satisfied(in the past 1 year) Satisfied Body Mass Index on04/08/23.Satisfied by MANUEL Lam Jenna Medicare Annual Wellness Visit on06/28/22.Satisfied by SYSTEM Electronic Signature on File Electronically Reviewed/Signed by: Landy Matthew PA-C Author Signature Dt/Tm:06/10/2023 10:00AM Division of Sports Medicine Electronically Reviewed/Signed by: Jaime Fulton MD Cosigner Signature Dt/Tm: 06/10/2023 10:02 AM [facility] Rehabilitation Patient Care team information Care Team Personnel Name: DO Steele Gretchen Elizabeth Position: Physician - Family Med Member Role: Primary Care Provider Address: Address: [address] [place] [address], [place] [address] Care Team Related Persons Name: JOE BLACK Address: [address] [id number]
--- OUTSIDE RECORDS SUMMARY | 2023-11-19 01:39 | External Medical Summary | Continuity of Care Document ---
Author Name Unknown Organization [facility] [address] [place] [phone] Care Team Providers Care Agronomy Technician Name Role Phone Anika Steele Primary Care Physicia n [phone] Encounter [facility] [id number] Date(s): 07/05/23 - 07/05/23 [facility] [address] [phone] Encounter Diagnosis Chronic pain syndrome(Discharge Diagnosis) - 07/05/23 Hypertension(Discharge Diagnosis) - 07/05/23 Hormone replacement therapy(Discharge Diagnosis) - 07/05/23 Body mass index [BMI] 20.0-20.9, adult(Discharge Diagnosis) - 07/05/23 Hypothyroid(Discharge Diagnosis) - 07/05/23 Fatigue(Discharge Diagnosis) - 07/05/23 Discharge Disposition: Home or Self Care Attending Physician: DO Steele Gretchen Elizabeth Referring Physician: DO Steele Gretchen Elizabeth Allergies, Adverse Reactions, Alerts No Known Allergies Assessment and Plan Extracted from: Title:Clinical Document Author:DO Steele Gretc hen Elizabeth Date:07/05/23 1.Chronic pain syndrome Chronic, stable, improved hip pain with b/l greater troch injections, patient interested in breast reduction due to strain on back, maintains good activity. 2.Hypertension Chronic, stable,continueamlodipine 5 mg daily,patient with goodapproach to activity,will continue to monitor 3.Hormone replacement therapy Chronic, active, patient resistant to decrease dose, has been on hormonal therapywith estrogen for years, she is understanding of risk andwould like to continue this medication due toside effects that she says affect her quality of lifeif she does not take this medication 4.Hypothyroid Chronic,active, recheck TSH, currently on levothyroxine 25 mcg daily, adjust if needed Immunizations Given and Recorded Vaccine Date Status [...] Daily, Disp# 90 tab, Refills: 2, Pharmacy: [id number] Start Date: 02/05/23 Stop Date: 11/02/23 Status: Ordered cycloSPORINE 0.05% ophthalmic emulsion Start: 03/06/23 12:40:00 EDT, 1 drop, both eyes, bid, Disp# 60 each, Refills: 3, Pharmacy: [id number] Start Date: 03/06/23 Status: Ordered Debrox 6.5% otic solution Start: 04/08/23 14:47:00 EDT, 5 drop, both ears, bid, Disp# 30 mL, Refills: 1, Pharmacy: [id number] Start Date: 04/08/23 Status: Ordered DULoxetine 60 mg oral delayed release capsule Start: 05/16/23 14:47:00 EDT, 1 cap, PO, Daily Start Date: 05/16/23 Status: Ordered estradiol 0.5 mg oral tablet Start: 12/19/22 9:41:00 EST, See Instructions, Disp# 90 tab, Refills: 1, TAKE 1 TABLET BY MOUTH EVERY DAY, Pharmacy: [id number] Start Date: 12/19/22 Status: Ordered famotidine 40 mg oral tablet Start: 05/16/23 15:09:00 EDT, 1 tab, PO, bid, Disp# 30 tab, Pharmacy: [id number] Start Date: 05/16/23 Stop Date: 05/30/23 Status: Ordered gabapentin 600 mg oral tablet Start: 05/16/23 14:47:00 EDT Start Date: 05/16/23 Status: Ordered levothyroxine 25 mcg (0.025 mg) oral tablet Start: 12/24/22 12:26:00 EST, See Instructions, Disp# 90 tab, Refills: 1, TAKE 1 TABLET BY MOUTH EVERY DAY, Pharmacy: [id number] Start Date: 12/24/22 Status: Ordered pantoprazole 40 mg oral delayed release tablet Start: 05/09/23 12:08:00 EDT, See Instructions, Disp# 90 tab, Refills: 1, TAKE 1 TABLET BY MOUTH EVERY DAY, Pharmacy: [id number] Start Date: 05/09/23 Status: Ordered Reclast 5 mg/100 mL intravenous solution Start: 06/28/22 14:25:00 EDT, 5 mg =, IV, ONCE, Disp# 1 each Start Date: 06/28/22 Status: Ordered Vitamin D3 1000 intl units (25 mcg) oral capsule Start: 10/30/21 12:53:00 EST, 1 cap, PO, Daily Start Date: 10/30/21 Status: Ordered Mental Status 07/05/23 Barriers to Learning one year None evide nt Mandatory Health Literacy Documentation Yes Health Literacy Communication Barriers N ever Primary Language Macedonian Problem List Condition Confirmation Course Effective Dates [...] Effective Dates Health Status Clinical Service Informant Chronic pain syndrome Discharge Diagnosis 07/05/23 Hypertension Discharge Diagnosis 07/05/23 Hormone replacement therapy Discharge Diagnosis 07/05/23 Body mass index [BMI] 20.0-20.9, adult Discharge Diagnosis 07/05/23 Non-Specified Fatigue Discharge Diagnosis 07/05/23 Non-Specified Hypothyroid Discharge Diagnosis 07/05/23 Procedures Procedure Date Related Diagnosis Body Site [...] oldest [Reference Range]: 1 Height 155.8 cm (07/05/23 2:47 PM) Patient Weight 49.6 kg (07/05/23 2:47 PM) Body Mass Index 20.43 kg/m2 (07/05/23 2:47 PM) Temperature [36.5-37.9 DegC] 36.3 DegC *LOW* (07/05/23 2:47 PM) Respiratory Rate 20 br/min (07/05/23 2:47 PM) Blood Pressure 130/78mmHg (07/05/23 2:47 PM) Cuff Pulse Pressure 52 mmHg (07/05/23 2:47 PM) BP Location # 1 Left Arm (07/05/23 2:47 PM) Social History Social History Type Response Smoking Status Never smoked cigaret jaqueline Sex FCM Outpt Note * DO Steele Gretchen Elizabeth: PERFORM Event Display: FCM Outpt Note Authored Date: [id number] Chief Complaint Pt here for her 3 month f/u. Pt lives at the [facility] and she states a lot of her friends there have covid. Pt has no symptoms. History of Present Illness Had right fifth metatarsal fracture on x-ray 05/03/2023, follows with Ortho, was givenbilateralinjections for trochanteric bursitis [place], [place] cases there, played bridge with someone, denies symptoms Leaving for [place] for 3 weeks, going with step daughter and - plans to wear a mask Still exercising No depression or anxiety symptoms Went to pulmonary for cough, was productive green sputum, increased protonix BID, then started famotidine 40 mg BID, seemed to improve cough Patient interested in breast augmentation for worsening back pain, states her breast hang and causeher to have poor posture, wearing a DD bra, states she has it fitted Review of Systems Pertinent positives and negatives as stated in history of present illness. Physical Exam Vitals & Measurements T:36.3C RR:20 BP:130/78 SpO2:98% HT:155.8cm WT:49.6kg WT:49.600kg(Dosing) BMI:20.43 PHQ2 Data(Data Documented on:07/05/2023 14:44) Emotional health assessment NEGATIVE General:Alert and oriented, no acute distress HEENT:Normocephalic,atraumatic, conjunctiva clear Cardiovascular:Normal rate, regular rhythm, no murmur, no gallop, +S1/S2, no S3/S4 Respiratory:Lungs clear bilaterally to auscultation, respirations non- labored, breath sounds equal, no rhonchi, no rales Gastrointestinal: Normal bowel sounds Psych:Mood and affect congruent. Assessment/Plan 1.Chronic pain syndrome Chronic, stable, improved hip pain with b/l greater troch injections, patient interested in breast reduction due to strain on back, maintains good activity. 2.Hypertension Chronic, stable,continueamlodipine 5 mg daily,patient with goodapproach to activity,will continue to monitor 3.Hormone replacement therapy Chronic, active, patient resistant to decrease dose, has been on hormonal therapywith estrogen for years, she is understanding of risk andwould like to continue this medication due toside effects that she says affect her quality of lifeif she does not take this medication 4.Hypothyroid Chronic,active, recheck TSH, currently on levothyroxine 25 mcg daily, adjust if needed Problem List/Past Medical History Ongoing Basal cell [...] (02/26/2022)DXA BONE DENSITY STUDY (01/04/2022)Ultrasound (11/02/2021)Mohs' surgery (2011) Medications acetaminophen(acetaminophen 325 mg oral tablet), 650 [...] OverDue Adult Influenza Vaccine due05/04/23and every 1year Medicare Annual Wellness Visit due06/28/23and every 1year Due Adult COVID-19 Vaccination due07/05/23Unknown Frequency Adult Tdap/Td Vaccine due07/05/23Unknown Frequency Lipid Screening due07/05/23Unknown Frequency Pneumococcal Vaccine Older Adults due07/05/23One-time only Shingles Vaccine due07/05/23One-time only Due In Future Body Mass Index not due until07/04/24and every 1year Satisfied(in the past 1 year) Satisfied Body Mass Index on07/05/23.Satisfied by NICHOLAS Lima Paula Electronic Signature on File Electronically Reviewed/Signed by: Anika Steele D.O. Author Signature Dt/Tm:07/05/2023 06:43 PM Department of Family Medicine [facility] Patient Care team information Care Team Personnel Name: DO Steele Gretchen Elizabeth Position: Physician - Family Med Member Role: Primary Care Provider Address: Address: [address] [place] [address], [place] [address] [place] Care Team Related Persons Name: BLACKJOE Address: home [address] [place] [address], [place] [phone]
--- OUTSIDE RECORDS SUMMARY | 2023-11-19 01:39 | External Medical Summary | Continuity of Care Document ---
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 [address] [address] Encounter Diagnosis Trochanteric bursitis of both hips(Discharge Diagnosis) - 09/02/23 Nondisplaced fracture of fifth metatarsal bone, right foot, initial encounter for closed fracture(Discharge Diagnosis) - 09/02/23 Discharge Disposition: Home or Self Care Attending Physician: MIS Matthew Jolene Marie Allergies, Adverse Reactions, Alerts No Known Allergies Assessment and Plan Extracted from: Title:Orthopaedics Office Visit Note Author:Nelsy burrows PA-C, Jolene Marie Date:09/02/23 1.Trochanteric bursitis of both hips Patient has responded tobilateral trochanteric bursa injections that were completed on 06/10. She is requesting bilateralinjections today. We discussed she does have some findings that are consistent with arthritis in thejoint I did offerimaging today and patient declined. We discussed risk and benefits of the injection. I obtained verbal consent. Procedure 1: The patient was positionedside-lyingand a timeout was performed confirming injection site, injection, and patient. Ashley Hoyos confirmed correct.Using aseptic technique the left hipwas prepped using betadine. This was followed bythe use ofEthyl Chloride to numb the area and area was again cleansed using betadine.Next, Iinjected the left trochanteric bursawith 1 cc of 40 mg Depo-Medrol and 1.5 cc of lidocaine 1% plain. There was very minimal bleeding whichwas controlled with light pressure. A dressing/bandage was applied. Pt tolerated the procedure well and had no adverse advents. Pt was advised on use of rest today andice x15min to the area with a towel layer prn. Pt wasadvised if any redness, swelling or drainage from the site to contact the office immediately. Procedure 2: The patient was positionedside-lyingand a timeout was performed confirming injection site, injection, and patient. NursingAshley confirmed correct.Using aseptic technique theright hipwas prepped using betadine. This was followed bythe use ofEthyl Chloride to numb the area and area was again cleansed using betadine.Next, Iinjected theright trochanteric bursawith 1 cc of 40 mg Depo-Medrol and 1.5 cc of lidocaine 1% plain. There was very minimal bleeding whichwas controlled with light pressure. A dressing/bandage was applied. Pt tolerated the procedure well and had no adverse advents. Pt was advised on use of rest today andice x15min to the area with a towel layer prn. Pt wasadvised if any redness, swelling or drainage from the site to contact the office immediately. Patient will follow-upin 3 months for reassessment. She was agreeable at that appointment to have imaging of bilateral hips to seeif there are findings of arthritis. She was advised if her symptoms get worse prior to this appointment to contact the office sooner and we will be happy to see her. Patient verbalized understanding and is in agreement with plan. 2.Nondisplaced fracture of fifth metatarsal bone, right foot, initial encounter for closed fracture Patient declined further imaging. She hadno tenderness or swelling or deformity upon exam today. She will follow-up as needed. Immunizations Given and Recorded Vaccine Date Status [...] Daily, Disp# 90 tab, Refills: 2, Pharmacy: [id number] Start Date: 02/05/23 Stop Date: 11/02/23 Status: Ordered cycloSPORINE 0.05% ophthalmic emulsion Start: 08/19/23 7:50:00 EDT, See Instructions, Disp# 60 each, Refills: 3, INSTILL 1 DROP INTO BOTH EYES TWO TIMES DAILY, Pharmacy: [id number] Start Date: 08/19/23 Status: Ordered Debrox 6.5% otic solution Start: 04/08/23 14:47:00 EDT, 5 drop, both ears, bid, Disp# 30 mL, Refills: 1, Pharmacy: [id number] Start Date: 04/08/23 Status: Ordered DULoxetine 60 mg oral delayed release capsule Start: 05/16/23 14:47:00 EDT, 1 cap, PO, Daily Start Date: 05/16/23 Status: Ordered estradiol 0.5 mg oral tablet Start: 07/29/23 10:44:00 EDT, See Instructions, Disp# 90 tab, Refills: 1, TAKE 1 TABLET BY MOUTH EVERY DAY, Pharmacy: [id number] Start Date: 07/29/23 Status: Ordered famotidine 40 mg oral tablet Start: 05/16/23 15:09:00 EDT, 1 tab, PO, bid, Disp# 30 tab, Pharmacy: [id number] Start Date: 05/16/23 Stop Date: 05/30/23 Status: Ordered gabapentin 600 mg oral tablet Start: 05/16/23 14:47:00 EDT Start Date: 05/16/23 Status: Ordered levothyroxine 25 mcg (0.025 mg) oral tablet Start: 12/24/22 12:26:00 EST, See Instructions, Disp# 90 tab, Refills: 1, TAKE 1 TABLET BY MOUTH EVERY DAY, Pharmacy: [id number] Start Date: 2/20/23 Status: Ordered pantoprazole 40 mg oral delayed release tablet Start: 05/09/23 12:08:00 EDT, See Instructions, Disp# 90 tab, Refills: 1, TAKE 1 TABLET BY MOUTH EVERY DAY, [id number] Start Date: 05/09/23 Status: Ordered Reclast 5 mg/100 mL intravenous solution Start: 06/28/22 14:25:00 EDT, 5 mg =, IV, ONCE, Disp# 1 each Start Date: 06/28/22 Status: Ordered Vitamin D3 1000 intl units (25 mcg) oral capsule Start: 10/30/21 12:53:00 EST, 1 cap, PO, Daily Start Date: 10/30/21 Status: Ordered Mental Status 09/02/23 Barriers to Learning one year None evide nt Mandatory Health Literacy Documentation Yes Health Literacy Communication Barriers N ever Primary Language Indian Problem List Condition Confirmation Course Effective Dates [...] Effective Dates Health Status Clinical Service Informant Nondisplaced fracture of fifth metatarsal bone, right foot, initial encounter for closed fracture Discharge Diagnosis 09/02/23 Trochanteric bursitis of both hips Discharge Diagnosis 09/02/23 Procedures Procedure Date Related Diagnosis Body Site [...] PERFORM Event Display: .Outpt Note Authored Date: Primary Care Provider DO Steele Gretchen Elizabeth Chief Complaint followup for right troch bursitis and right foot fx. Foot no longer is an issue History of Present Illness Patient is an 88-year-old female who is a known patient to the office. She has a history of having aright fifth metatarsalfracture that was discovered on 05/03. She also has a history of having bilateral strokebursitisand previously had injections on 06/10. She is here for reassessment. She states she had recently been traveling and had done a lot of walking and denies any pain in her foot or swelling. She states she forgot all about having the history of having it fractured. She isdeclining and refusing any further imaging of her foot. She isrequesting to have bursa injections. She states its been 12 weeks since her last injections and probably the last 1 to 2 weeks she started having painin her hips. She states she has pain on the outer aspect and at times in the groin. She states that seems to be more bothersome with increased walking. She states if she sits for period of time sometimes it will irritate the outer aspect of her hips. She has a history of having a walker and using this at times. She states she will use this at times but does notseem to have any difference in the lateral hip pain. She denies any fall or injury. She is not having any radicular symptoms in her lower extremities. She states she does have a history ofneuropathy and this does not seem to be bothersome at this time. She denies any fever, chills, night sweats, chest pain or shortness of breath. Review of Systems Please refer to HPI Physical Exam Is seated comfortably in exam chair. She is alert and oriented x3 no acute distress pleasant and conversive.Patient was transition onto exam table. Leg length is equal. She has a positiveRocker sign bilaterally. She is able to tolerate hip internal and external rotation without any painreproduced in groin. She does have some pain on the lateralaspectof bilateral hipswith external rotation. Patient has negative straight leg raise bilaterally. Sensation was assessed over L3-L4-L5 this is intact.Patient was positioned in side-lying and has exquisite tenderness over bilateral trochanteric bursa's. Gait is normal without assistive device. Her shoe was removed on the right lower extremity. Her skin is normal in color and temperature negative for erythema edema or deformity. She has no palpable tenderness along the metatarsals. Sensation is intactoverright foot. Assessment/Plan 1.Trochanteric bursitis of both hips Patient has responded tobilateral trochanteric bursa injections that were completed on 06/10. Sheis requesting bilateralinjections today. We discussed she does have some findings that are consistent with arthritis in thejoint I did offerimaging today and patient declined. We discussed risk and benefits of the injection. I obtained verbal consent. Procedure 1: The patient was positionedside-lyingand a timeout was performed confirming injection site, injection, and patient. NursingAshley confirmed correct.Using aseptic technique the left hipwasprepped using betadine. This was followed bythe use ofEthyl Chloride to numb the area and area was again cleansed using betadine.Next, Iinjected the left trochanteric bursawith 1 cc of 40 mg Depo-Medrol and 1.5 cc of lidocaine 1% plain. There was very minimal bleeding whichwas controlled with light pressure. A dressing/bandage was applied. Pt tolerated the procedure well and had no adverse advents. Pt was advised on use of rest today andice x15min to the area with a towel layer prn. Pt wasadvised if any redness, swelling or drainage from the site to contact the office immediately. Procedure 2: The patient was positionedside-lyingand a timeout was performed confirming injection site, injection, and patient. NursingAshley confirmed correct.Using aseptic technique theright hipwas prepped using betadine. This was followed bythe use ofEthyl Chloride to numb the area and area was again cleansed using betadine.Next, Iinjected theright trochanteric bursawith 1 cc of 40 mg Depo-Medrol and 1.5 cc of lidocaine 1% plain. There was very minimal bleeding whichwas controlled with light pressure. A dressing/bandage was applied. Pt tolerated the procedure well and had no adverse advents. Pt was advised on use of rest today andice x15min to the area with a towel layer prn. Pt wasadvised if any redness, swelling or drainage from the site to contact the office immediately. Patient will follow-upin 3 months for reassessment. She was agreeable at that appointment tohave imaging of bilateral hips to seeif there are findings of arthritis. She was advised if hersymptoms get worse prior to this appointment to contact the office sooner and we will be happy to see her. Patient verbalized understanding and is in agreement with plan. 2.Nondisplaced fracture of fifth metatarsal bone, right foot, initial encounter for closed fracture Patient declined further imaging. She hadno tenderness or swelling or deformity upon exam today. She will follow-up as needed. Problem List/Past Medical History Ongoing Basal cell [...] PO, Daily cycloSPORINE ophthalmic(cycloSPORINE 0.05% ophthalmic emulsion), See Instructions DULoxetine(DULoxetine 60 mg oral delayed release capsule), 60 mg= 1 cap, PO, Daily estradiol(estradiol 0.5 mg oral tablet), See Instructions, 1 refills famotidine(famotidine 40 mg oral tablet), 40 mg= 1 tab, PO, bid gabapentin(gabapentin 600 mg oral tablet) levothyroxine(levothyroxine 25 mcg (0.025 mg) oral tablet), See Instructions, 1 refills methylPREDNISolone(DEPO-Medrol 40 mg/mL injectable suspension), 40 mg= 1 mL, intra-articular, ONCE methylPREDNISolone(DEPO-Medrol 40 mg/mL injectable suspension), 40 mg= 1 mL, intra-articular, ONCE pantoprazole(pantoprazole [...] due06/28/23and every 1year Due Adult COVID-19 Vaccination due09/02/23Unknown Frequency Adult Tdap/Td Vaccine due09/02/23Unknown Frequency Lipid Screening due09/02/23Unknown Frequency Pneumococcal Vaccine Older Adults due09/02/23One-time only Shingles Vaccine due09/02/23One-time only Due In Future Body Mass Index not due until07/04/24and every 1year Satisfied(in the past 1 year) Satisfied Body Mass Index on07/05/23.Satisfied by NICHOLAS Lima Paula Electronic Signature on File Electronically Reviewed/Signed by: Landy Matthew PA-C Author Signature Dt/Tm:09/02/2023 10:38AM Division of Sports Medicine Electronically Reviewed/Signed by: Jaime Fulton MD Cosigner Signature Dt/Tm: 09/02/2023 11:08 AM Guest Experience Specialist of Orthopaedics & Rehabilitation and Physical Medicine & Rehabilitation Patient Care team information Care Team Personnel Name: DO Steele Gretchen Elizabeth Position: Physician - Family Med Member Role: Primary Care Provider Address: Address: [address] [place] [id number] Care Team Related Persons Name: JOE BLACK Address: home [address] [place] [phone]
[2023-11-19 05:13] LABS: BUN Creatinine Ratio 19.2 (10-20); Calcium 8.6 mg/dl (8.6-10.3); Creatinine Clr Calc Pharmacy 39.1 ml/min; Est GFR (African American) 79.8 ml/min; Est GFR (Non-African American) 68.8 ml/min; Potassium 3.7 mmol/L (3.5-5.1)
[2023-11-19 05:19] LABS: Basophils # (auto) 0.01 K/uL (0.00-0.20); Basophils % (auto) 0.2 %; Eosinophils # (auto) 0.08 K/uL (0.00-0.50); Eosinophils % (auto) 1.4 %; Hematocrit (blood only) 35.2 % (37.0-47.0); Hemoglobin 12.1 g/dl (12.0-16.0); Immature Granulocytes # (auto) 0.02 K/uL (0.01-0.20); Immature Granulocytes % (auto) 0.3 %; Lymphocytes # (auto) 1.57 K/uL (1.20-3.40); Lymphocytes % (auto) 27.2 %; Mean Corpuscular Hemoglobin 31.9 pg (25.0-34.0); Mean Corpuscular Hgb Conc 34.4 g/dL (32.0-36.0); Mean Corpuscular Volume 92.9 fL (80.0-100.0); Mean Platelet Volume 11.5 fL (9.4-12.4); Monocytes # (auto) 0.88 K/uL (0.11-0.59); Monocytes % (auto) 15.2 %; Neutrophils # (auto) 3.22 K/uL (1.40-6.50); Neutrophils % (auto) 55.7 %; Platelet Count 143 K/uL (130-400); RDW Coefficient of Variation 13.7 % (11.5-14.5); RDW Standard Deviation 46.4 fL (36.4-46.3); Red Blood Count 3.79 M/uL (4.20-5.40); White Blood Count 5.78 K/ul (4.8-10.8)
[2023-11-19] MEDS ORDERED: CEFEPIME 1,000 MG in SYRINGE 0 ML IV SCH ×2 (06:00→18:00)
[2023-11-19] MEDS: LEVOTHYROXINE SODIUM 25 MCG TABLET PO SCH (06:25)
[2023-11-19] MEDS: SODIUM CHLOR 7% 4 ML NEB NEB SCH ×2 (06:51→19:59)
[2023-11-19] MEDS: ALBUT/IPRATROP 3MG/0.5MG NEB 3 ML VIAL NEB SCH ×4 (06:51→19:59)
[2023-11-19] MEDS: POLYETHYLENE (MIRALAX) 17 GM PACK PO SCH (08:05)
[2023-11-19] MEDS: DULoxetine HCL 60 MG CAP PO SCH (08:06)
[2023-11-19] MEDS: guaiFENesin 600 MG TABCR PO SCH ×2 (08:06→21:56)
[2023-11-19] MEDS: estradioL 1 MG TAB PO SCH (08:07)
[2023-11-19] MEDS: PANTOprazole 40 MG TAB PO SCH (08:08)
[2023-11-19] MEDS: LACTATED RINGER'S 1,000 ML IV SCH (08:09)
--- NOTE | 2023-11-19 15:05 | Hospitalist Progress Note ---
Date of Service November 19, 2023 Assessment & Plan (1) RSV (respiratory syncytial virus infection): Plan: repeat cxr today without any new infiltrates cxr findings are all chronic - RML consolidation is chronic, tree-in-bud opacities also chronic - Dr Davis describes all of these findings in his office notes at minimum has significant bronchitis due to RSV infection cannot exclude a bacterial superinfection - sputum cx is pending add dexamethasone 6mg IV daily, cont duonebs QID, cont saline nebs BID, consider chest PT twice daily cont flutter valve cont incentive spirometry cont mucinex cont IV cefepime for now - she has had pseudomonas infection in the past, but if sputum cx is negative would d/c cont droplet precautions and other supportive care (2) ALFONSO (acute kidney injury): Plan: Peak Cr 1.24 Now Cr 0.78 today resolved d/c IV fluids (3) GERD (gastroesophageal reflux disease): Plan: Continue pantoprazole (4) Hypothyroid: Plan: Continue levothyroxine TSH 4.1 in 07/2023 (5) HTN (hypertension): Plan: BPs are low-normal HOLD amlodipine for now (6) 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: Plan: Continue duloxetine, gabapentin (7) Insomnia: Plan: schedule melatonin 3mg HS schedule vistaril 10mg HS re-eval tomorrow (8) Elevated troponin: Plan: HS trop 15 scant elevation minimal myocardial demand ischemia in setting of #1 Plan VTE PPx: Heparin 5000u SQ q12h change observation status to full admission status updated pt's son Trev Luu by phone this evening will request PT eval Admission and Anticipated Discharge Date Admission Date: November 18, 2023 Subjective patient continues with cough but the cough/congestion/sputum is better in comparison to yesterday denies dyspnea on exertion walking from the bed to the bathroom she is typically not on oxygen at home she confirms h/o [place] Fever years ago when she lived in [place] she follows with Dr Davis [facility] she has known bronchiectasis and he has asked her to do saline nebs twice daily PFTs 06/2023 did not show obstruction denies any fevers or chills appetite fair Review of Systems Review of Systems: gen - no fevers cv - no chest pain pulm - no dyspnea at rest or with activity GI - no N/V/pain Physical Exam Physical Exam: gen - thin, NAD, coughing - cough is very bronchial mouth - MMM neck - no JVD heart - RRR, s1 s2 lungs - b/l fine basilar rales, airation fair, no wheezes, no increased work of breathing abd - soft NT ND BS+ ext - no edema, pulses 2+ b/l psych - a/o x 3 Results & Data Results & Data Vital Signs (Past 12 Hours) Vital Signs Temp Pulse Pulse Resp BP BP Pulse Ox 11/19/23 14:40 36.9 C 82 18 96/60 L 94 11/19/23 11:20 78 21 95 11/19/23 07:20 36.7 C 83 20 108/65 94 11/19/23 07:20 11/19/23 07:20 11/19/23 06:51 77 18 98 11/19/23 06:00 75 18 94 11/19/23 05:00 81 21 95 11/19/23 04:00 80 21 111/72 97 Pulse Ox O2 Del Method O2 Del Method O2 Flow Rate O2 Flow Rate 11/19/23 14:40 Nasal Cannula 2 11/19/23 11:20 Nasal Cannula 2 11/19/23 07:20 Nasal Cannula 2 11/19/23 07:20 Nasal Cannula 2 11/19/23 07:20 95 Nasal Cannula 2 11/19/23 06:51 Nasal Cannula 2 11/19/23 06:00 2 11/19/23 05:00 11/19/23 04:00 Laboratory Results Laboratory Results - last 24 hr 11/18/23 11/18/23 11/18/23 16:39 17:16 20:46 WBC 7.38 RBC 4.69 Hgb 14.6 Hct 44.3 MCV 94.5 MCH 31.1 MCHC 33.0 RDW Std Deviation 47.5 H RDW Coeff of Tanya 13.7 Plt Count 159 MPV 12.2 Immature Gran % (Auto) 0.5 Neut % (Auto) 62.0 Lymph % (Auto) 21.1 [place] % (Auto) 16.0 Eos % (Auto) 0.3 Baso % (Auto) 0.1 Neut # (Auto) 4.57 Lymph # (Auto) 1.56 [place] # (Auto) 1.18 H Eos # (Auto) 0.02 Baso # (Auto) 0.01 Immature Gran # (Auto) 0.04 PT 11.4 INR 1.0 Sodium 137 Potassium 3.6 Chloride 99 Carbon Dioxide 28 Anion Gap 10 BUN 17 Creatinine 1.24 H Est Cr Clr Drug Dosing 24.6 Est GFR ( Amer) 45.5 Est GFR (Non-Af Amer) 39.3 BUN/Creatinine Ratio 13.7 Glucose 124 H Calcium 9.3 Magnesium 2.1 Total Bilirubin 0.7 AST 18 ALT 10 Alkaline Phosphatase 62 Troponin I High Sens 15.2 H Total Protein 7.4 Albumin 3.9 Globulin 3.5 Albumin/Globulin Ratio 1.1 Procalcitonin 0.18 Urine Color Yellow Urine Appearance Clear Urine pH 5.5 Ur Specific [place] 1.021 Urine Protein 1+ H Urine Glucose (UA) Negative Urine Ketones Trace H Urine Blood Negative Urine Nitrite Negative Urine Bilirubin Negative Urine Urobilinogen Negative Ur Leukocyte Esterase Negative Urine WBC (Auto) 1-5 Urine RBC (Auto) 0-4 U Hyaline Cast (Auto) 1-5 U Epithel Cells (Auto) >30 H Urine Bacteria (Auto) Negative Nasal Screen MRSA (PCR) Adenovirus (PCR) Not Detected B. pertussis DNA (PCR) Not Detected B.parapertussis DNA PCR Not Detected C. pneumoniae DNA (PCR) Not Detected Coronavirus OC43 (PCR) Not Detected Coronavirus HKU1 (PCR) Not Detected Coronavirus 229E (PCR) Not Detected SARS-CoV-2 (PCR) Not Detected Coronavirus NL63 (PCR) Not Detected Human Metapneumovir PCR Not Detected Influenza Type A (PCR) Not Detected Influenza Type B (PCR) Not Detected M. pneumoniae (PCR) Not Detected Parainfluenza 1 (PCR) Not Detected Parainfluenza 2 (PCR) Not Detected Parainfluenza 3 (PCR) Not Detected Parainfluenza 4 (PCR) Not Detected RSV (PCR) DETECTED A* Entero/Rhino (PCR) Not Detected 11/19/23 11/19/23 01:18 04:28 WBC 5.78 RBC 3.79 L Hgb 12.1 Hct 35.2 L MCV 92.9 MCH 31.9 MCHC 34.4 RDW Std Deviation 46.4 H RDW Coeff of Tanya 13.7 Plt Count 143 MPV 11.5 Immature Gran % (Auto) 0.3 Neut % (Auto) 55.7 Lymph % (Auto) 27.2 [place] % (Auto) 15.2 Eos % (Auto) 1.4 Baso % (Auto) 0.2 Neut # (Auto) 3.22 Lymph # (Auto) 1.57 [place] # (Auto) 0.88 H Eos # (Auto) 0.08 Baso # (Auto) 0.01 Immature Gran # (Auto) 0.02 PT INR Sodium 138 Potassium 3.7 Chloride 105 Carbon Dioxide 28 Anion Gap 5 BUN 15 Creatinine 0.78 D Est Cr Clr Drug Dosing 39.1 Est GFR ( Amer) 79.8 Est GFR (Non-Af Amer) 68.8 BUN/Creatinine Ratio 19.2 Glucose 102 H Calcium 8.6 Magnesium Total Bilirubin AST ALT Alkaline Phosphatase Troponin I High Sens Total Protein Albumin Globulin Albumin/Globulin Ratio Procalcitonin Urine Color Urine Appearance Urine pH Ur Specific [place] Urine Protein Urine Glucose (UA) Urine Ketones Urine Blood Urine Nitrite Urine Bilirubin Urine Urobilinogen Ur Leukocyte Esterase Urine WBC (Auto) Urine RBC (Auto) U Hyaline Cast (Auto) U Epithel Cells (Auto) Urine Bacteria (Auto) Nasal Screen MRSA (PCR) Negative Adenovirus (PCR) B. pertussis DNA (PCR) B.parapertussis DNA PCR C. pneumoniae DNA (PCR) Coronavirus OC43 (PCR) Coronavirus HKU1 (PCR) Coronavirus 229E (PCR) SARS-CoV-2 (PCR) Coronavirus NL63 (PCR) Human Metapneumovir PCR Influenza Type A (PCR) Influenza Type B (PCR) M. pneumoniae (PCR) Parainfluenza 1 (PCR) Parainfluenza 2 (PCR) Parainfluenza 3 (PCR) Parainfluenza 4 (PCR) RSV (PCR) Entero/Rhino (PCR) PG Care Time/CCT Total # of Minutes Spent Total Time Spent with Patient: Total time spent is greater than 50% in coordination of care (as documented) at patient's floor/unit and/or counseling patient: Coding Level of Care Code 83257 SUB INP/OBS CARE 3/50MIN Diagnoses RSV (respiratory syncytial virus infection) B33.8 ALFONSO (acute kidney injury) N17.9 GERD (gastroesophageal reflux disease) K21.9 Hypothyroid E03.9 HTN (hypertension) I10 Hypertension type: unspecified 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
[2023-11-19] MEDS: dexAMETHasone 6 MG in SYRINGE 0 ML IV SCH (16:26)
--- NOTE | 2023-11-19 17:08 | XRay Report ---
XR chest 2V PA/lateral HISTORY: 88 years-old Female RSV+, b/l crackles; interval change acute shortness of breath COMPARISON: 11/18/2023 chest radiograph, chest CT 11/19/2022 TECHNIQUE: PA and lateral views of the chest FINDINGS: No pneumothorax. No pleural effusions. Bronchiectasis with scattered tree-in-bud nodular opacities an d mild interstitial thickening again noted. Chronic consolidation within the right middle lobe is sta ble. There are calcified mediastinal and hilar lymph nodes. No new focal lung consolidations identifi ed. No evidence for overt edema. The heart is normal in size. IMPRESSION: Chronic findings as above without acute process of the chest. ACT 112: Negative or not required by law. The above report was generated using voice recognition software. It may contain grammatical, syntax o r spelling errors. Electronically signed by: Skyler Horton M.D. 11/19/2023 5:07 PM
[2023-11-19] MEDS: CEFEPIME 2,000 MG in SYRINGE 0 ML IV SCH (18:51)
[2023-11-19] MEDS: hydrOXYzine HCl 10 MG TAB PO SCH ×2 (21:56→23:01)
[2023-11-19] MEDS: MELATONIN 3 MG TAB PO SCH ×2 (21:56→23:01)
--- NOTE | 2023-11-20 06:07 | Electrocardiogram Report ---
Test Reason : Blood Pressure : / mmHG Vent. Rate : 098 BPM Atrial Rate : 098 BPM P-R Int : 134 ms QRS Dur : 088 ms QT Int : 340 ms P-R-T Axes : 015 -75 076 degrees QTc Int : 434 ms Normal sinus rhythm Left axis deviation Anterior infarct Abnormal ECG When compared with ECG of 12-MAR-2022 19:51, Questionable change in initial forces of Septal leads Confirmed by Adam Jarvis ([id number]) on 11/20/2023 6:06:59 AM Referred By: REFERRED SELF Confirmed By:Adam Jarvis
[2023-11-20] MEDS: CEFEPIME 2,000 MG in SYRINGE 0 ML IV SCH ×2 (06:10→17:55)
[2023-11-20 06:34] LABS: Basophils # (auto) 0.01 K/uL (0.00-0.20); Basophils % (auto) 0.3 %; Hematocrit (blood only) 33.9 % (37.0-47.0); Hemoglobin 11.3 g/dl (12.0-16.0); Immature Granulocytes # (auto) 0.02 K/uL (0.01-0.20); Immature Granulocytes % (auto) 0.5 %; Lymphocytes % (auto) 17.7 %; Mean Corpuscular Hemoglobin 31.2 pg (25.0-34.0); Mean Corpuscular Hgb Conc 33.3 g/dL (32.0-36.0); Mean Corpuscular Volume 93.6 fL (80.0-100.0); Mean Platelet Volume 11.1 fL (9.4-12.4); Monocytes # (auto) 0.26 K/uL (0.11-0.59); Monocytes % (auto) 6.6 %; Neutrophils # (auto) 2.96 K/uL (1.40-6.50); Neutrophils % (auto) 74.9 %; Platelet Count 153 K/uL (130-400); RDW Coefficient of Variation 13.2 % (11.5-14.5); RDW Standard Deviation 45.5 fL (36.4-46.3); Red Blood Count 3.62 M/uL (4.20-5.40); White Blood Count 3.95 K/ul (4.8-10.8)
[2023-11-20] MEDS: LEVOTHYROXINE SODIUM 25 MCG TABLET PO SCH (06:34)
[2023-11-20 06:49] LABS: Calcium 9.2 mg/dl (8.6-10.3); Creatinine Clr Calc Pharmacy 50.8 ml/min; Est GFR (African American) 95.7 ml/min; Est GFR (Non-African American) 82.5 ml/min
[2023-11-20] MEDS: ALBUT/IPRATROP 3MG/0.5MG NEB 3 ML VIAL NEB SCH ×4 (07:23→19:58)
[2023-11-20] MEDS: SODIUM CHLOR 7% 4 ML NEB NEB SCH ×2 (07:23→19:58)
[2023-11-20] MEDS: GABAPENTIN 600 MG TAB PO SCH ×2 (07:52→21:10)
[2023-11-20] MEDS: POLYETHYLENE (MIRALAX) 17 GM PACK PO SCH (07:52)
[2023-11-20] MEDS: DULoxetine HCL 60 MG CAP PO SCH (07:52)
[2023-11-20] MEDS: PANTOprazole 40 MG TAB PO SCH (07:52)
[2023-11-20] MEDS: HEPARIN SOD 5,000 UNIT/0.5 ML VIAL SQ SCH ×2 (07:53→21:10)
[2023-11-20] MEDS: estradioL 1 MG TAB PO SCH (07:54)
[2023-11-20] MEDS: guaiFENesin 600 MG TABCR PO SCH ×2 (10:19→21:10)
--- NOTE | 2023-11-20 13:15 | Hospitalist Progress Note ---
Date of Service November 20, 2023 Assessment & Plan (1) RSV (respiratory syncytial virus infection): Plan: slowly improving but still borderline hypoxic repeat cxr yesterday without any new infiltrates cxr findings are all chronic - RML consolidation is chronic, tree-in-bud opacities also chronic - Dr Davis describes all of these findings in his office notes at minimum has significant bronchitis due to RSV infection cannot exclude a bacterial superinfection - sputum cx growing 2 GNRs - await identification cont dexamethasone 6mg IV daily, cont duonebs QID, cont saline nebs BID, and add chest PT twice daily cont flutter valve cont incentive spirometry cont mucinex cont IV cefepime for now - she has had pseudomonas infection in the past and is growing GNR on sputum cx cont droplet precautions and other supportive care (2) ALFONSO (acute kidney injury): Plan: Peak Cr 1.24 Now Cr 0.78 resolved (3) GERD (gastroesophageal reflux disease): Plan: Continue pantoprazole (4) Hypothyroid: Plan: Continue levothyroxine TSH 4.1 in 07/2023 (5) HTN (hypertension): Plan: BPs are low-normal cont to HOLD amlodipine (6) 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: Plan: Continue duloxetine, gabapentin (7) Insomnia: Plan: cont scheduled melatonin 3mg HS cont scheduled vistaril but increase dose to 20mg HS (8) Elevated troponin: Plan: HS trop 15 scant elevation minimal myocardial demand ischemia in setting of #1 Plan VTE PPx: Heparin 5000u SQ q12h updated pt's son Mr Luu by phone yesterday evening appreciate PT eval -- she is ambulating well Admission and Anticipated Discharge Date Admission Date: November 19, 2023 Subjective Ms Leos overall feels much better today less cough less sputum production denies any dyspnea at rest or with activity I had the staff walk her in the hallway and o2 sats were about 90% in room air she is anxious to go home eating is better did not sleep well last night Review of Systems Review of Systems: gen - no fevers cv - no chest pain, no orthopnea pulm - no wheezing GI - no abd pain or N/V Physical Exam Physical Exam: gen - thin, NAD, looks better today mouth - MMM neck - no JVD heart - RRR, s1 s2, 1/6 YAMILE LSB lungs - b/l fine basilar rales - still present, maybe slightly better today; airation slightly better b/l; no wheezes, no increased work of breathing; rhonchorous breath sounds R mid-lung abd - soft NT ND BS+ ext - no edema, pulses 2+ b/l psych - a/o x 3 Results & Data Results & Data Vital Signs (Past 12 Hours) Vital Signs Temp Pulse Resp BP Pulse Ox O2 Del Method O2 Flow Rate 11/20/23 12:39 91 H 92 Room Air 11/20/23 12:35 92 Room Air 11/20/23 11:26 69 18 90 Room Air 11/20/23 10:20 71 92 Room Air 11/20/23 09:45 90 11/20/23 07:45 Room Air 11/20/23 07:23 80 18 95 Nasal Cannula 1 11/20/23 07:17 94 Nasal Cannula 2 11/20/23 07:15 36.7 C 75 15 110/65 92 Nasal Cannula 2 Laboratory Results Laboratory Results - last 24 hr 11/20/23 06:20 WBC 3.95 L RBC 3.62 L Hgb 11.3 L Hct 33.9 L MCV 93.6 MCH 31.2 MCHC 33.3 RDW Std Deviation 45.5 RDW Coeff of Tanya 13.2 Plt Count 153 MPV 11.1 Immature Gran % (Auto) 0.5 Neut % (Auto) 74.9 Lymph % (Auto) 17.7 [place] % (Auto) 6.6 Eos % (Auto) 0.0 Baso % (Auto) 0.3 Neut # (Auto) 2.96 Lymph # (Auto) 0.70 L [place] # (Auto) 0.26 Eos # (Auto) 0.00 Baso # (Auto) 0.01 Immature Gran # (Auto) 0.02 Sodium 137 Potassium 4.0 Chloride 104 Carbon Dioxide 28 Anion Gap 5 BUN 9 Creatinine 0.60 Est Cr Clr Drug Dosing 50.8 Est GFR ( Amer) 95.7 Est GFR (Non-Af Amer) 82.5 BUN/Creatinine Ratio 15.0 Glucose 129 H Calcium 9.2 Diagnostic Findings sputum cx - GNR x 2 PG Care Time/CCT Total # of Minutes Spent Total Time Spent with Patient: Total time spent is greater than 50% in coordination of care (as documented) at patient's floor/unit and/or counseling patient: Coding Level of Care Code 16229 SUB INP/OBS CARE MIN Diagnoses RSV (respiratory syncytial virus infection) B33.8 ALFONSO (acute kidney injury) N17.9 GERD (gastroesophageal reflux disease) K21.9 Hypothyroid E03.9 HTN (hypertension) I10 Hypertension type: unspecified 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
[2023-11-20] MEDS: dexAMETHasone 6 MG in SYRINGE 0 ML IV SCH (16:44)
[2023-11-20] MEDS ORDERED: hydrOXYzine HCl 10 MG TAB PO SCH (21:00)
[2023-11-20] MEDS: MELATONIN 3 MG TAB PO SCH (22:53)
[2023-11-21] MEDS: LEVOTHYROXINE SODIUM 25 MCG TABLET PO SCH (06:11)
[2023-11-21] MEDS: CEFEPIME 2,000 MG in SYRINGE 0 ML IV SCH ×2 (06:11→17:22)
[2023-11-21 06:25] LABS: Basophils # (auto) 0.01 K/uL (0.00-0.20); Basophils % (auto) 0.2 %; Hematocrit (blood only) 35.4 % (37.0-47.0); Hemoglobin 11.8 g/dl (12.0-16.0); Immature Granulocytes # (auto) 0.02 K/uL (0.01-0.20); Immature Granulocytes % (auto) 0.4 %; Lymphocytes # (auto) 0.98 K/uL (1.20-3.40); Lymphocytes % (auto) 20.5 %; Mean Corpuscular Hemoglobin 30.8 pg (25.0-34.0); Mean Corpuscular Hgb Conc 33.3 g/dL (32.0-36.0); Mean Corpuscular Volume 92.4 fL (80.0-100.0); Mean Platelet Volume 11.1 fL (9.4-12.4); Monocytes # (auto) 0.37 K/uL (0.11-0.59); Monocytes % (auto) 7.8 %; Neutrophils # (auto) 3.39 K/uL (1.40-6.50); Neutrophils % (auto) 71.1 %; Platelet Count 209 K/uL (130-400); RDW Coefficient of Variation 13.3 % (11.5-14.5); RDW Standard Deviation 45.1 fL (36.4-46.3); Red Blood Count 3.83 M/uL (4.20-5.40); White Blood Count 4.77 K/ul (4.8-10.8)
[2023-11-21 06:48] LABS: BUN Creatinine Ratio 15.6 (10-20); Calcium 9.9 mg/dl (8.6-10.3); Creatinine Clr Calc Pharmacy 47.6 ml/min; Est GFR (African American) 93.6 ml/min; Est GFR (Non-African American) 80.8 ml/min; Potassium 4.6 mmol/L (3.5-5.1)
[2023-11-21] MEDS: ALBUT/IPRATROP 3MG/0.5MG NEB 3 ML VIAL NEB SCH ×3 (07:23→15:18)
[2023-11-21] MEDS: SODIUM CHLOR 7% 4 ML NEB NEB SCH (07:23)
[2023-11-21] MEDS: guaiFENesin 600 MG TABCR PO SCH (08:13)
[2023-11-21] MEDS: GABAPENTIN 600 MG TAB PO SCH (08:13)
[2023-11-21] MEDS: estradioL 1 MG TAB PO SCH (08:14)
[2023-11-21] MEDS: DULoxetine HCL 60 MG CAP PO SCH (08:14)
[2023-11-21] MEDS: PANTOprazole 40 MG TAB PO SCH (08:14)
[2023-11-21] MEDS: HEPARIN SOD 5,000 UNIT/0.5 ML VIAL SQ SCH (08:15)
[2023-11-21] MEDS: POLYETHYLENE (MIRALAX) 17 GM PACK PO SCH (08:25)
[2023-11-21] MEDS: dexAMETHasone 6 MG in SYRINGE 0 ML IV SCH (16:23)
--- NOTE | 2023-11-21 18:18 | Discharge Summary ---
Date of Service date of admission - November 18, 2023 date of discharge - November 21, 2023 Admission HPI Per Admitting Provider Tiana is a pleasant 88-year-old female with PMH of HTN, hypothyroidism, GERD, lumbar pain with radiation down right leg, chronic cough, bronchiectasis, and Valley Fever. She presented for cough, intermittent fever, fatigue, and decreased appetite x 1 week. RSV positive on arrival. Patient reports that her productive cough (green sputum) started on Sunday 11/12. She denies SOB. No at home supplemental oxygen use. Patient had 1 episode of fever on Saturday night; she took Sudafed, as well as her regular Tylenol PM, but is not sure if it helped. Patient took all of her regular medications this morning. No recent change in medications. She manages her own medications at home. No sick contacts. She denies smoking, tobacco use, vaping, and recreational drug use; endorses mild alcohol use; 2 glasses of wine per week. She follows with Dr. Davis (pulmonology), and has a history of valley fever (coccidioidal infection) many years ago; not on any inhalers. Patient's vitals are stable at this time of admission; SpO2 94% on 2L NC. ED course: Cefepime 2000 mg IV NSS 500 mL IV ROS: Patient endorses intermittent fever (on Saturday; resolved), and productive cough (green sputum) Patient denies lightheadedness, dizziness, hemoptysis, chest pain, chest palpitations, pleuritic CP, abdominal pain, N/V/D, urinary s/s, burning with urination, blood in the stool/urine, or numbness/tingling/pain in the legs. Principal Diagnosis 1. respiratory syncytial virus (RSV) bronchitis 2. chronic bronchiectasis with acute pseudomonas infection 3. prior history of fungal infection 4. acute kidney injury - resolved Discharge Exam gen - thin, NAD, appears well mouth - MMM neck - no JVD heart - RRR, s1 s2, 1/6 YAMILE LSB lungs - mild b/l fine basilar rales; airation improved from admission; no wheezes, no increased work of breathing abd - soft NT ND BS+ ext - no edema, pulses 2+ b/l psych - a/o x 3 Discharge Data Allergies Allergy/AdvReac Type Severity Reaction Status Date / Time No Known Allergies Allergy Verified 11/18/23 16:37 Consultations Physical therapy Procedures Performed 2-step ambulatory O2 test - NO NEED for home O2 (sats ranged 89-93% during the 6-minute walk) Ordered Studies Chest X-Ray 11/18/23 17:07 XR chest 2V PA/lateral HISTORY: Dyspnea/cough COMPARISON: Chest 03/12/2022. Chest CT 11/19/2022. FINDINGS: No pneumothorax. No pleural effusions. Bronchiectasis with scattered tree-in-bud nodular opacities and mild interstitial thickening persists. Chronic consolidation within the right middle lobe remains unchanged. There are calcified mediastinal and hilar lymph nodes. No new focal lung consolidations identified. No evidence for overt edema. The heart is normal in size. IMPRESSION: Chronic changes as described above. This is similar to the prior studies. ACT 112: Negative or not required by law. Electronically signed by: Gui House M.D. 11/18/2023 7:18 PM Chest X-Ray 11/19/23 15:03 XR chest 2V PA/lateral HISTORY: 88 years-old Female RSV+, b/l crackles; interval change acute shortness of breath COMPARISON: 11/18/2023 chest radiograph, chest CT 11/19/2022 TECHNIQUE: PA and lateral views of the chest FINDINGS: No pneumothorax. No pleural effusions. Bronchiectasis with scattered tree-in-bud nodular opacities and mild interstitial thickening again noted. Chronic consolidation within the right middle lobe is stable. There are calcified mediastinal and hilar lymph nodes. No new focal lung consolidations identified. No evidence for overt edema. The heart is normal in size. IMPRESSION: Chronic findings as above without acute process of the chest. ACT 112: Negative or not required by law. The above report was generated using voice recognition software. It may contain grammatical, syntax or spelling errors. Electronically signed by: Skyler Horton M.D. 11/19/2023 5:07 PM Hospital Course (1) RSV (respiratory syncytial virus infection): [employer] was positive for RSV infection at presentation. Patient had an O2 requirement early in the stay. This slowly improved and O2 was weaned off prior to discharge. Chest x-ray x 2 with findings that are all chronic - RML consolidation is chronic, tree-in-bud opacities also chronic - Dr Melyssa Davis, her primary audiovisual aids technician, describes all of these findings in his office notes. At minimum had significant bronchitis due to RSV infection. She likely had bacterial superinfection - sputum culture grew 2 strains of pseudomonas - alcaligenes & aeruginosa. She was treated with dexamethasone 6mg IV daily, duonebs, twice daily saline nebs BID, and chest PT. IV cefepime was employed for the pseudomonas infection. With all of the above she improved nicely and all pulmonary symptoms were decreasing prior to discharge. She passed her 2-step ambulatory O2 test; home O2 was not prescribed. She will do the following at discharge - * complete a steroid taper * take 2 additional doses of PO levaquin 750mg (this will complete 7 days in total of IV/PO antibiotic therapy for the pseudomonas) * saline nebs twice daily * duonebs prn * flutter valve/incentive spirometry * check her O2 sats at home as needed * f/u with Dr Davis, her audiovisual aids technician, within a week of discharge for recheck (2) Exacerbation of bronchiectasis due to infection: RSV plus pseudomonas as noted in #1 above. 7-day course of IV cefepime followed by PO levaquin was utilized for her pseudomonas infection. 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 respiratory syncytial virus ("RSV") infection of the lungs 2. pseudomonas infection of lungs 3. prior history of fungal infection while living in [place] 4. chronic bronchiectasis Activity: As commented below Activity Comment: gradually increase your activities over the next 7-10 days Exercise/Sports: Wait until after follow-up appointment Non-emergency contact: Primary Care Provider and Shop Supervisor Call non-emergency contact if: you have any medication questions Follow-up/Referrals: Melyssa Davis MD, FCCP [Physician] - 11/28/23 1:00 pm (You are currently scheduled to see Dr Davis on December 09. We have contacted Dr Davis's office to try and move this appointment up (ideally within the next week). ) [facility] [Primary Care Provider] - (see your family doctor within 3 days for recheck ) Diet: Regular Addtl Attending Provider Instructions: Mrs Leos, Travis were hospitalized due to respiratory illness caused by a combination of "RSV" infection as well as probable bacterial infection of the lungs. RSV (see handout) is a common viral infection that can cause significant respi ratory illness especially in young children and certain adults. Adults with chronic lung conditions, adults in their senior care years, etc are most susceptible to severe RSV infection. Fortunately you have done well during your hospitalization. You required oxygen for about 48 hours. This was successfully weaned off well prior to discharge. On 11/21/23 we performed a walking oxygen test to see if you needed oxygen for your home; you passed this test thus oxygen is not needed. Your chest x-rays during the hospitalization mainly showed chronic lung findings that Dr Davis from [facility] has been following over time. Some of the findings include bronchiectasis (see handout), some scarring of the lungs, etc. You responded nicely to steroids, albuterol treatments, saline nebulizer treatments, and antibiotics. You are growing 2 types of bacteria on your sputum culture and thus we are recommending a course of antibiotics after discharge. With respect to the RSV your period of contagiousness is likely ending soon as your respiratory symptoms are doing much better (cough, congestion, etc). I would recommend that you continue to wear a mask in public for the rest of the winter as the respiratory illness season has been quite severe thus far. Recommendations - 1. Antibiotics - * levofloxacin 750mg tablet - take dose #1 on 11/22/23, then dose #2 on 11/24/23. Following these 2 doses your antibiotics are complete. If the sputum culture grows a bacterium that requires a different antibiotic I will call and let you know. 2. Saline (salt) nebulizer treatments - * please use these twice daily for the next 7 days * in about a week you can use the saline treatments once a day as previously recommended by Dr Davis 3. Duoneb (albuterol-ipratropium) nebulizer treatments - * for any cough/congestion/wheezing/shortness of breath you can use this treatment as needed * 1 duoneb treatment every 6 hours as needed / as desired * note that this nebulizer treatment is different than the saline neb treatments you have used in the past 4. For any remaining cough you can take [id number] Mucinex up to 1200mg twice daily as needed / as desired 5. Steroids - * take prednisone as follows - take with food * 4 tabs x 1 on 11/22/23 * 3 tabs each day on 11/23/23 and 11/24/23 * 2 tabs each day on 11/25/23 and 11/26/23 * 1 tab x 1 on 11/27/23 then stop * the prednisone may increase your appetite, make you more thirsty, or cause some disturbance in your sleep 6. Pulse oximeter - please purchase a pulse oximeter from any pharmacy or medical supply store. [employer], [employer], etc typically stock these devices. The pulse oximeter reads your oxygen levels on your finger. You can check your oxygen levels a few times a day as desired. * If your oxygen levels on your pulse oximeter are consistently 90% or more these are acceptable readings. * If your readings are consistently less than 90% please seek medical attention right away. 7. Please hold your amlodipine blood pressure medicine. It has been on hold during your stay and your blood pressures have been very normal without it. 8. You likely have another week or two of additional recovery ahead from this illness. Gradually increase your activities during this time period - don't over do it, and be sure to focus on good nutrition, hydration, and getting adequate rest. 9. Please use the flutter valve and incentive spirometry devices that were given to you at the hospital for another week or so. These are good for your lungs and help speed up your recovery. Follow-up - see separate section Return to [facility] if - * you have fevers over 100 degrees * you have worsening shortness of breath * you have chest pains * you have pulse oximeter readings that are consistently less than 90% * you develop severe diarrhea * any other concerns It was our pleasure to care for you! Pending Studies at Discharge: Yes Studies:: Sputum culture Stand-Alone Forms: My [facility], Smoking Cessation Medications and DC Order Prescriptions: New ipratropium-albuterol 0.5 mg-3 mg(2.5 mg base)/3 mL Solution For Nebulization 3 ml NEB Q6H PRN (Reason: cough/shortness of breath) Qty: 1 0RF levofloxacin 750 mg tablet 750 mg PO DIRECTED Qty: 2 0RF Rx Instructions: take dose #1 on 11/22/23, and then take dose #2 on 11/24/23. prednisone 10 mg tablet 10 mg PO DIRECTED Qty: 15 0RF Rx Instructions: start 11/22, take with food. 4 tabs PO QD x 1 day; 3 tabs PO QD x 2 days; 2 tabs PO QD x 2 days; 1 tab PO QD x 1 day. sodium chloride 7 % Solution For Nebulization 4 ml NEB DIRECTED Qty: 240 2RF Rx Instructions: use twice daily x 1 week, then once daily thereafter. Continued diphenhydramine-acetaminophen [Tylenol PM Extra Strength] 25-500 mg tablet 1 tab PO HS PRN (Reason: Sleep) polyethylene glycol 3350 [Miralax] 17 gram/dose powder 17 g PO QAM duloxetine [Cymbalta] 60 mg capsule,delayed release(DR/EC) 60 mg PO QAM gabapentin 600 mg tablet 1,200 mg PO BID pantoprazole 40 mg tablet,delayed release (DR/EC) 40 mg PO DAILY estradiol 0.5 mg tablet 0.5 mg PO DAILY cyclosporine 0.05 % dropperette 1 drp OPB BID levothyroxine 25 mcg tablet 25 mcg PO DAILYBB Held amlodipine 5 mg tablet 5 mg PO PM Hold Instructions: your blood pressure has been normal while here without this medication; please hold until you see your family doctor Discharge Orders: Discharge Order (Routine); Ordered 11/21/23 Ordered By: Lalit Keene/Other Patient Handouts: Rapid Detection RSV, RSV (Respiratory Syncytial Virus), Understanding Bronchiectasis Admission Data Admit Date/Time: 11/19/23 15:03 Attending Provider: Lalit Cervantes Admit Provider: Swathi Beltran Primary Care Provider: Warren Peña Other Providers: Swathi Beltran Other Interventions: Discharge Summary Assessment (RN) Last Done: 11/21/23 17:23 Coding Level of Care Code 59590 INP/OBS DISCH >30 MIN Diagnoses RSV (respiratory syncytial virus infection) B33.8 Exacerbation of bronchiectasis due to infection J47.1; B99.9 ALFONSO (acute kidney injury) N17.9 GERD (gastroesophageal reflux disease) K21.9 Hypothyroid E03.9 HTN (hypertension) I10 Hypertension type: unspecified 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
== END 2023-11-21 19:17 | disposition home or self-care (01) | DRG 202 ==
LOC: EDINP 16:03 → ED 16:03 → SUATTDRO 20:17 → 3E 11-19 22:28
DX: Z66 Do not resuscitate; B33.8 Other specified viral diseases; J47.0 Bronchiectasis with acute lower respiratory infection; B96.5 Pseudomonas (aeruginosa) (mallei) (pseudomallei) as the cause of diseases classified elsewhere; G47.00 Insomnia, unspecified; E03.9 Hypothyroidism, unspecified; Z86.16 Personal history of COVID-19; I24.89 Other forms of acute ischemic heart disease; I10 Essential (primary) hypertension; N17.9 Acute kidney failure, unspecified; K21.9 Gastro-esophageal reflux disease without esophagitis; J20.5 Acute bronchitis due to respiratory syncytial virus